=== PATIENT | female | born 1970 ===

== ENCOUNTER 2017-02-26 17:54 | Emergency (ER) | payer OTHER ==
[2017-02-26 18:17] VITALS: RESP 18; O2SAT 97
[2017-02-26] MEDS ORDERED: Sodium Chloride 0.9% 1,000 ML IV ONE (18:28)
--- NOTE | 2017-02-26 18:33 | C.PDOC ---
History Of Present Illness 46 y/o female presents to the ED with complaints of headache, body aches, and chills for the past several days. pt reports mild abdominal pain. Pt also reports vomiting. Denies fever, cough, dysuria, diarrhea, SOB or any other complaints. Time Seen by Provider: 02/26/17 18:26 Chief Complaint (Nursing): Flu-like Symptoms History Per: Patient History/Exam Limitations: no limitations Onset/Duration Of Symptoms: Days Current Symptoms Are (Timing): Still Present Location Of Pain: Diffuse Myalgias Sick Contacts (Context): None Associated Symptoms: Chills, Vomiting. denies: Cough, Diarrhea Severity: Mild Recent travel outside of the [place]: No Past Medical History Reviewed: Historical Data, Nursing Documentation, Vital Signs Vital Signs: Last Vital Signs Temp 98.1 F 02/26/17 21:39 Pulse 97 H 02/26/17 21:39 Resp 18 02/26/17 21:39 BP 101/66 02/26/17 21:39 Pulse Ox 97 02/26/17 22:57 Surgical History: Tonsillectomy Family History: States: Unknown Family Hx - Social History Hx Alcohol Use: Yes Hx Substance Use: No - Immunization History Hx Tetanus Toxoid Vaccination: No Hx Influenza Vaccination: Yes Hx Pneumococcal Vaccination: No Review Of Systems Except As Marked, All Systems Reviewed And Found Negative. Constitutional: Positive for: Chills, Other (body aches). Negative for: Fever Respiratory: Negative for: Cough Gastrointestinal: Positive for: Vomiting. Negative for: Diarrhea Genitourinary: Negative for: Dysuria Neurological: Positive for: Headache Physical Exam - Physical Exam Appears: Non-toxic, No Acute Distress Skin: Warm, Dry, No Rash Head: Atraumatic, Normacephalic Ear(s): Bilateral: Normal Nose: Normal Oral Mucosa: Moist Throat: Normal, No Erythema Neck: Normal, Normal ROM, Supple, Other (no meningismus) Chest: Symmetrical Cardiovascular: Rhythm Regular, No Murmur Respiratory: Normal Breath Sounds, No Rales, No Rhonchi, No Wheezing Gastrointestinal/Abdominal: Normal Exam, Soft, No Tenderness Extremity: Bilateral: Atraumatic Neurological/Psych: Oriented x3, Normal Speech ED Course And Treatment - Laboratory Results Result Diagrams: 02/26/17 18:56 02/26/17 18:56 O2 Sat by Pulse Oximetry: 97 (room air) Pulse Ox Interpretation: Normal Progress Note: Plan: VBG, labs, CXR, UA, flu swab, IV fluids, zofran, tylenol Medical Decision Making Medical Decision Making: r/o sepsis, uti, pna, influenza- labs imaging pending labs imaging pending 715: ekg sinus tach 109 940: pt reassesed: minimal elevated la, no leukoctyosis, sirs neg. ct head and abd neg. urine ?positive. will treat. s/p pain meds, antibiotics, pt now states feels better. observed comfortable. advise outpt f/u and return precautions. tachycardia resolved. pt notified of abnormal lfts. ct abd pelvis neg. suspect viral . rubio resolved. no menignmus. neuro intact. neck supple Disposition - Disposition Referrals: Arnie Jay MD [Staff Provider] - Joey Long MD [Staff Provider] - Disposition: HOME/ ROUTINE Disposition Time: 21:43 Condition: STABLE Additional Instructions: please follow up with your doctor. return to er with worsening symptoms or concenrs. Prescriptions: Cefpodoxime [Vantin] 100 mg PO BID #14 tab Instructions: Urinary Tract Infection in Women (DC), Weakness (ED), Abdominal Pain (ED) - Clinical Impression Clinical Impression: UTI (urinary tract infection), Body aches, Headache - Scribe Statement The provider has reviewed the documentation as recorded by the Bianca Styles Provider Attestation: All medical record entries made by the Bianca were at my direction and personally dictated by me. I have reviewed the chart and agree that the record accurately reflects my personal performance of the history, physical exam, medical decision making, and the department course for this patient. I have also personally directed, reviewed, and agree with the discharge instructions and disposition.
[2017-02-26] MEDS ORDERED: Sodium Chloride 0.9% 1,000 ML ONE (18:43)
--- NOTE | 2017-02-26 18:45 | RAD ---
PROCEDURE: CHEST RADIOGRAPH, 1 VIEW HISTORY: abd pain COMPARISON: None available. FINDINGS: LUNGS: Clear. PLEURA: No pneumothorax or pleural fluid seen. CARDIOVASCULAR: Normal. OSSEOUS STRUCTURES: No significant abnormalities. VISUALIZED UPPER ABDOMEN: Normal. OTHER FINDINGS: None. IMPRESSION: No active disease.
[2017-02-26 19:01] LABS: HCG,QUALITATIVE URINE NEGATIVE (NEGATIVE)
[2017-02-26 19:05] LABS: BASO % 0.2 % (0.0-2.0); EOS % 0.1 % (0.0-4.0); HEMOGLOBIN 13.6 g/dL (11.0-16.0); LYMPH # 3.7 K/uL (1.0-4.3); LYMPH % 50.1 % (20.0-40.0); MEAN CELL VOLUME 91.4 fL (81.0-99.0); MEAN CORPUSCULAR HEMOGLOBIN 30.6 pg (27.0-31.0); MEAN CORPUSCULAR HGB CONC 33.5 g/dL (33.0-37.0); MEAN PLATELET VOLUME 7.7 fL (7.2-11.7); MONO # 0.5 K/uL (0.0-0.8); MONO % 6.4 % (0.0-10.0); NEUT # 3.2 K/uL (1.8-7.0); NEUT % 43.2 % (50.0-75.0); NRBC % 0.3 % (0.0-2.0); RBC 4.44 Mil/uL (3.80-5.20); RED CELL DISTRIBUTION WIDTH 13.8 % (11.5-14.5); WHITE BLOOD COUNT 7.4 K/uL (4.8-10.8)
[2017-02-26 19:07] LABS: VENOUS BLOOD GAS BASE EXCESS 1.5 mmol/L (0.0-2.0); VENOUS BLOOD GAS PCO2 43 mmHg (40-60); VENOUS BLOOD GAS PO2 27 mm/Hg (30-55)
[2017-02-26 19:08] LABS: ALBUMIN 3.8 g/dL (3.5-5.0)
[2017-02-26 19:09] LABS: PROTHROMBIN TIME 11.7 SECONDS (9.7-12.2)
[2017-02-26 19:10] LABS: GFR AFRICAN-AMERICAN > 60; GFR NON-AFRICAN AMERICAN > 60
[2017-02-26 19:11] LABS: ALB/GLOB RATIO 0.9 (1.0-2.1); ALT/SGPT 325 U/L (9-52); AST/SGOT 341 U/L (14-36); BLOOD UREA NITROGEN 10 mg/dL (7-17); CALCIUM 8.3 mg/dl (8.6-10.4); LIPASE 55 U/L (23-300)
[2017-02-26 19:11] LABS: SQUAMOUS EPITHIAL 6 /hpf (0-5); URINE BILIRUBIN NEGATIVE (NEGATIVE); URINE BLOOD 3+ (NEGATIVE); URINE CLARITY Clear (Clear); URINE GLUCOSE (UA) NORMAL (Normal); URINE LEUKOCYTE ESTERASE TRACE Leu/uL (Negative); URINE NITRATE NEGATIVE (NEGATIVE); URINE PROTEIN 1+ mg/dL (NEGATIVE)
[2017-02-26 19:14] LABS: URINE COLOR YELLOW (YELLOW)
[2017-02-26] MEDS ORDERED: cefTRIAXone IV 1 gm in Dextros 50 ML IVPB ONE ×4 (19:31→19:40)
[2017-02-26] MEDS ORDERED: Iodixanol 320 MG/ML 100 ML BOTTLE IV ONE (20:09)
[2017-02-26 21:42] VITALS: BP 101/66; PULSE 97; TEMP 98.1
--- NOTE | 2017-02-27 07:48 | CT ---
PROCEDURE: CT HEAD WITHOUT CONTRAST. HISTORY: Headache COMPARISON: None available. TECHNIQUE: Axial computed tomography images were obtained through the head/brain without intravenous contrast. Radiation dose: Total exam DLP = 828 mGy-cm. This CT exam was performed using one or more of the following dose reduction techniques: Automated exposure control, adjustment of the mA and/or kV according to patient size, and/or use of iterative reconstruction technique. FINDINGS: HEMORRHAGE: No intracranial hemorrhage. BRAIN: No mass effect or edema. No atrophy or chronic microvascular ischemic changes. VENTRICLES: Unremarkable. No hydrocephalus. CALVARIUM: Unremarkable. PARANASAL SINUSES: Unremarkable as visualized. No significant inflammatory changes. MASTOID AIR CELLS: Unremarkable as visualized. No inflammatory changes. OTHER FINDINGS: None. IMPRESSION: No acute intracranial abnormality. If focal neurologic deficit persists, consider MRI. These findings were preliminarily reported at 9:01 p.m. on 02/26/[address] Angie Neville from [facility].
--- NOTE | 2017-02-27 08:15 | CT ---
PROCEDURE: CT Abdomen and Pelvis with intravenous contrast HISTORY: Abdominal pain, fever, elevated liver enzymes COMPARISON: None. TECHNIQUE: Multiple contiguous axial images were performed through the abdomen and pelvis with the use of intravenous contrast. Subsequently, sagittal and coronal reformatted images were obtained. Radiation dose: Total exam DLP = 366 mGy-cm. This CT exam was performed using one or more of the following dose reduction techniques: Automated exposure control, adjustment of the mA and/or kV according to patient size, and/or use of iterative reconstruction technique. FINDINGS: LOWER THORAX: Unremarkable. LIVER: Unremarkable. No gross lesion or ductal dilatation. GALLBLADDER AND BILE DUCTS: Unremarkable. PANCREAS: Unremarkable. No gross lesion or ductal dilatation. SPLEEN: Unremarkable. ADRENALS: Unremarkable. No mass. KIDNEYS AND URETERS: Unremarkable. No hydronephrosis. No solid mass. VASCULATURE: Unremarkable. No aortic aneurysm. BOWEL: Scattered colonic diverticuli. APPENDIX: No findings to suggest acute appendicitis. PERITONEUM: Unremarkable. No free fluid. No free air. LYMPH NODES: Unremarkable. No enlarged lymph nodes. BLADDER: Unremarkable. REPRODUCTIVE: Retroflexed uterus. BONES: Degenerative changes in the spine with prominent posterior disc osteophyte complex at the L5-S1 level. OTHER FINDINGS: Tiny umbilical hernia. IMPRESSION: Scattered colonic diverticuli. No evidence of diverticulitis. Tiny umbilical hernia. No evidence of strangulation. These findings were preliminarily reported at 9:30 p.m. on 02/26/[address] Angie Neville from [facility].
--- NOTE | 2017-03-01 10:48 | CARD ---
APPROVED REPORT EKG Measurement Heart [id number] HI [id number] <Conclusion> Sinus tachycardia Otherwise normal ECG
== END 2017-02-26 21:53 | disposition home or self-care (01) ==
LOC: C.ER 17:54
DX: N39.0 Urinary tract infection, site not specified (principal)
CPT/HCPCS: 70450; 71010; 74177; 80053; 81001; 82803; 83690; 84703; 85025; 85610; 85730; 87804; 93005; 96361; 96365; 96375; 99285; J0696; J1885; J2405; J7040; Q9967

== ENCOUNTER 2017-02-28 22:10 | Inpatient (IN) | payer OTHER ==
--- NOTE | 2017-02-28 22:37 | C.PDOC ---
History Of Present Illness 46F c.o headache, body aches, subjective fever, malaise for the last 10 days. was seen here for same 2 days ago but does not feel any better. now also has nausea and occasional vomiting. taken OTC meds for fever/pain without relief. Time Seen by Provider: 02/28/17 22:34 Chief Complaint (Nursing): Headache Past Medical History Vital Signs: Last Vital Signs Temp 98.3 F 03/02/17 17:14 Pulse 95 H 03/02/17 17:14 Resp 20 03/02/17 17:14 BP 101/67 03/02/17 17:14 Pulse Ox 97 03/02/17 17:14 - Medical History PMH: Denies: Chronic Kidney Disease Surgical History: Tonsillectomy Family History: States: Other Other Family History: nc - Social History Hx Alcohol Use: Yes Hx Substance Use: No - Immunization History Hx Tetanus Toxoid Vaccination: No Hx Influenza Vaccination: Yes Hx Pneumococcal Vaccination: No Review Of Systems Except As Marked, All Systems Reviewed And Found Negative. Constitutional: Positive for: Fever, Chills, Weakness, Malaise Eyes: Negative for: Vision Change Cardiovascular: Negative for: Chest Pain Respiratory: Negative for: Cough, Shortness of Breath Gastrointestinal: Positive for: Nausea, Vomiting. Negative for: Abdominal Pain , Diarrhea Genitourinary: Negative for: Dysuria, Frequency, Hematuria Musculoskeletal: Positive for: Neck Pain Neurological: Positive for: Headache. Negative for: Weakness, Numbness, Altered Mental Status Physical Exam - Physical Exam Appears: Well, Non-toxic, No Acute Distress Skin: Warm, Dry Head: Atraumatic Eye(s): bilateral: PERRL, EOMI Nose: No Epistaxis Oral Mucosa: Moist Tongue: No Swelling Lips: No Swelling Neck: Normal ROM, Supple Cardiovascular: Rhythm Regular Respiratory: No Decreased Breath Sounds, No Accessory Muscle Use, No Rales, No Rhonchi, No Stridor, No Wheezing Gastrointestinal/Abdominal: Soft, No Tenderness, No Distention, No Guarding, No Rebound Extremity: No Swelling Pulses: Left Radial: Normal, Right Radial: Normal Neurological/Psych: Oriented x3, Normal Cranial Nerves, Normal Motor, Normal Sensation, Other (no focal deficits) ED Course And Treatment - Laboratory Results Result Diagrams: 03/02/17 07:27 03/02/17 07:27 O2 Sat by Pulse Oximetry: 98 Lumbar Puncture - Consent obtained Consent obtained: Written - Performed by Performed by: Attending Physician - Indications Indication(s): Suspected menigitis - Contraindications Contraindications: None - Patient Position Patient position: Left lateral decubitus - Local Anesthetic Location: L3/L4 - Complications Complications: None - Patient tolerated procedure Patient tolerated procedure: Well - Notes: Notes:: unable to obtain CSF Medical Decision Making Medical Decision Making: josie Romero who will admit 0030 josie Ayala, jose jacob Disposition - Disposition Disposition: HOSPITALIZED Disposition Time: 23:27 Condition: STABLE - Clinical Impression Clinical Impression: Headache, Fever
[2017-02-28] MEDS ORDERED: Sodium Chloride 0.9% 1,000 ML IV ONE (22:39)
[2017-02-28] MEDS ORDERED: Lidocaine 1%/Epinephrine 1:100000 30 ml vial IJ STA (22:54)
[2017-02-28] MEDS ORDERED: Sodium Chloride 0.9% 1,000 ML ONE (22:55)
[2017-02-28] MEDS ORDERED: Lidocaine 2% w Epi 1:100,000 Inj IJ ONE (23:16)
[2017-02-28 23:23] LABS: EOS % 0.3 % (0.0-4.0); LYMPH % 59.6 % (20.0-40.0); NRBC % 0.2 % (0.0-2.0)
[2017-02-28 23:26] LABS: BASO % 0.1 % (0.0-2.0); HEMOGLOBIN 13.5 g/dL (11.0-16.0); LYMPH # 4.7 K/uL (1.0-4.3); MEAN CELL VOLUME 89.6 fL (81.0-99.0); MEAN CORPUSCULAR HEMOGLOBIN 29.9 pg (27.0-31.0); MEAN CORPUSCULAR HGB CONC 33.3 g/dL (33.0-37.0); MONO # 0.5 K/uL (0.0-0.8); MONO % 6.3 % (0.0-10.0); NEUT # 2.7 K/uL (1.8-7.0); NEUT % 33.7 % (50.0-75.0); PLATELET COUNT 180 K/uL (130-400); RBC 4.53 Mil/uL (3.80-5.20); RED CELL DISTRIBUTION WIDTH 13.9 % (11.5-14.5); WHITE BLOOD COUNT 7.9 K/uL (4.8-10.8)
[2017-02-28] MEDS: Acyclovir 500 MG in Dextrose 5% In Water 100 ML IV STA (23:30)
[2017-02-28] MEDS: Sodium Chloride 0.9% 1,000 ML IV SCH (23:30)
[2017-02-28] MEDS ORDERED: cefTRIAXone 2 GM in Sodium Chloride 0.9% 100 ML IVPB STA (23:30)
[2017-02-28 23:36] LABS: ALBUMIN 3.6 g/dL (3.5-5.0)
[2017-02-28 23:38] LABS: GFR AFRICAN-AMERICAN > 60; GFR NON-AFRICAN AMERICAN > 60
[2017-02-28 23:39] LABS: ALB/GLOB RATIO 0.9 (1.0-2.1); ALT/SGPT 472 U/L (9-52); AST/SGOT 427 U/L (14-36); BLOOD UREA NITROGEN 9 mg/dL (7-17); CALCIUM 8.2 mg/dl (8.6-10.4)
[2017-03-01 01:37] LABS: SQUAMOUS EPITHIAL 9 /hpf (0-5); URINE BACTERIA RARE (<OCC); URINE BILIRUBIN NEGATIVE (NEGATIVE); URINE CLARITY Hazy (Clear); URINE COLOR Amber (YELLOW); URINE GLUCOSE (UA) NORMAL (Normal); URINE NITRATE NEGATIVE (NEGATIVE); URINE PROTEIN NEGATIVE (NEGATIVE)
[2017-03-01 01:39] LABS: HCG,QUALITATIVE URINE NEGATIVE (NEGATIVE); URINE BLOOD 1+ (NEGATIVE); URINE LEUKOCYTE ESTERASE 1+ Leu/uL (Negative)
[2017-03-01] MEDS: Sodium Chloride 0.9% 1,000 ML IV SCH ×2 (02:17→19:57)
[2017-03-01] MEDS: Acyclovir 500 MG in Dextrose 5% In Water 100 ML IV STA (02:17)
[2017-03-01 03:38] LABS: BANDS 2 % (0-2); LYMPHOCYTE 17 % (20-40); MONOCYTE 4 % (0-10); NEUTROPHIL 40 % (50-75); PLATELET ESTIMATE NORMAL (NORMAL); REACTIVE LYMPHOCYTES 37 % (0-0); TOTAL CELLS COUNTED 100
[2017-03-01] MEDS ORDERED: DiphenhydrAMINE 50 mg/ml Inj IVP STA (04:18)
[2017-03-01] MEDS ORDERED: cefTRIAXone IV 1 gm in Dextros 1 GM in Dextrose 5% In Water 50 ML IVPB SCH (09:45)
[2017-03-01] MEDS: Pantoprazole 40 mg EC Tab PO SCH (11:27)
[2017-03-01] MEDS: cefTRIAXone IV 1 gm in Dextros 50 ML IVPB SCH ×2 (11:27→22:07)
[2017-03-01] MEDS: Enoxaparin 40 mg Syringe SC SCH (11:27)
[2017-03-01] MEDS ORDERED: Iodixanol 320 MG/ML 100 ML BOTTLE IV ONE (11:54)
--- NOTE | 2017-03-01 12:31 | CP.PCM.CON ---
History of Present Illness - History of Present Illness History of Present Illness: 46F c.o headache, body aches, subjective fever, malaise for the last 10 days. was seen here for same 2 days ago but does not feel any better. now also has nausea and occasional vomiting. taken OTC meds for fever/pain without relief. - Medical History PMH: Denies: Chronic Kidney Disease Surgical History: Tonsillectomy Review of Systems - Constitutional Constitutional: As Per HPI, Anorexia, Chills, Fever - EENT Eyes: absent: As Per HPI, Blind Spots, Blurred Vision, Change in Vision, Decreased Night Vision, Diplopia, Discharge, Dry Eye, Exophthalmos, Floaters, Irritation, Itchy Eyes, Loss of Peripheral Vision, Pain, Photophobia, Requires Corrective Lenses, Sees Flashes, Spots in Vision, Tunnel Vision, Other Visual Disturbances, Loss of Vision, Other Ears: absent: As Per HPI, Decreased Hearing, Ear Discharge, Ear Pain, Tinnitus, Abnormal Hearing, Disequilibrium, Dizziness, Other Nose/Mouth/Throat: absent: As Per HPI, Epistaxis, Nasal Congestion, Nasal Discharge, Nasal Obstruction, Nasal Trauma, Nose Pain, Post Nasal Drip, Sinus Pain, Sinus Pressure, Bleeding Gums, Change in Voice, Dental Pain, Dry Mouth, Dysphagia, Halitosis, Hoarsness, Lip Swelling, Mouth Lesions, Mouth Pain, Odynophagia, Sore Throat, Throat Swelling, Tongue Swelling, Facial Pain, Neck Pain, Neck Mass, Other - Breasts Breasts: absent: As Per HPI, Change in Shape, Mass, Pain, Nipple Discharge, Nipple Inversion, Skin Changes, Swelling, Other - Cardiovascular Cardiovascular: absent: As Per HPI, Acrocyanosis, Chest Pain, Chest Pain at Rest , Chest Pain with Activity, Claudication, Diaphoresis, Dyspnea, Dyspnea on Exertion, Edema, Irregular Heart Rhythm, Pain Radiating to Arm/Neck/Jaw, Leg Edema, Leg Ulcers, Lightheadedness, Orthopnea, Palpitations, Paroxysmal Nocturnal Dyspnea, Pedal Edema, Radiating Pain, Rapid Heart Rate, Slow Heart Rate, Syncope, Other - Respiratory Respiratory: absent: As Per HPI, Cough, Dyspnea, Hemoptysis, Dyspnea on Exertion , Wheezing, Snoring, Stridor, Pain on Inspiration, Chest Congestion, Excessive Mucous Production, Change in Mucous Color, Pain with Coughing, Other - Gastrointestinal Gastrointestinal: absent: As Per HPI, Abdominal Pain, Belching, Bloating, Change in Bowel Habits, Change in Stool Character, Coffee Ground Emesis, Constipation, Cramping, Diarrhea, Dyspepsia, Dysphagia, Early Satiety, Excessive Flatus, Fecal Incontinence, Heartburn, Hematemesis, Hematochezia, Loose Stools, Melena, Nausea, Odynophagia, Temesmus, Vomiting, Other - Genitourinary Genitourinary: absent: As Per HPI, Change in Urinary Stream, Difficulty Urinating, Dysuria, Flank Pain, Hematuria, Pyuria, Nocturia, Urinary Incontinence, Urinary Frequency, Urinary Hesitance, Urinary Urgency, Voiding Freq/Small Amts, Freq UTI, Hx Renal/Bladder Calculi, Hx /Renal Surgery, Bladder Distension, Other - Reproductive: Female Reproductive:Female: absent: As Per HPI, Amenorrhea, Amenorrhea/ Control, Currently Menstual, Cycle <21 Days, Cycle >35 Days, Cycle Variable, Menses 1-7 Days, Menses >/= 8 Days, Menses Variable, Cycle > 4 Weeks Between, No Menses for 6 Months, Heavy Menses, Light Menses, Normal Menses, Spotting Between Cycles , S/P Hysterectomy, Menopausal, Post Menopausal, Premenarche, Abnormal Vaginal Bleeding, Dysmenorrhea, Dyspareunia, Genital Lesions, Genital Pruritis, Pelvic Pain, Prolapse Symptoms, Sexual Dysfunction, Vaginal Discharge, Vaginal Dryness , Vaginal Odor, Vaginal Pruritis, Other - Menstruation Menstruation: absent: As Per HPI, Amenorrhea, Amenorrhea/ Control, Currently Menstual, Cycle <21 Days, Cycle >35 Days, Cycle Variable, Menses 1-7 Days, Menses >/= 8 Days, Menses Variable, Cycle > 4 Weeks Between, No Menses for 6 Months, Heavy Menses, Light Menses, Normal Menses, Spotting Between Cycles , S/P Hysterectomy, Menopausal, Post Menopausal, Premenarche, Abnormal Vaginal Bleeding, Dysmenorrhea, Other - Musculoskeletal Musculoskeletal: absent: As Per HPI, Abnormal Gait, Arthralgias, Atrophy, Back Pain, Deformity, Joint Swelling, Limited Range of Motion, Loss of Height, Muscle Cramps, Muscle Weakness, Myalgias, Neck Pain, Numbness, Radiating Pain into Limb, Stiffness, Tingling, Other - Integumentary Integumentary: absent: As Per HPI, Acne, Alopecia, Bleeding Lesions, Change in Hair, Change in Nails, Change in Pigmentation, Changing Lesions, Dry Skin, Erythema, Furuncle, Hirsutism, Lesions, New Lesions, Non-Healing Lesions, Photosensitivity, Pruritus, Rash, Skin Pain, Skin Ulcer, Sores, Striae, Swelling , Unusual Bruising, Wounds, Jaundice, Other - Neurological Neurological: As Per HPI - Psychiatric Psychiatric: absent: As Per HPI, Abnormal Sleep Pattern, Anhedonia, Anxiety, Auditory Hallucinations, Behavioral Changes, Change in Appetite, Change in Libido, Confusion, Depression, Difficulty Concentrating, Hallucinations, Homicidal Ideation, Hopelessness, Irritability, Memory Loss, Mood Swings, Panic Attacks, Paranoia, Suicidal Ideation, Visual Hallucinations, Tactile Hallucinations, Other - Endocrine Endocrine: absent: As Per HPI, Change in Body Appearance, Change in Libido, Cold Intolorance, Deepening of Voice, Excessive Sweating, Fatigue, Flushing, Heat Intolorance, Increase in Ring/Shoe/Hat Size, Palpitations, Polydipsia, Polyphagia, Polyuria, Other - Hematologic/Lymphatic Hematologic: absent: As Per HPI, Easy Bleeding, Easy Bruising, Lymphadenopathy, Other Past Patient History - Infectious Disease Hx of Infectious Diseases: None - Past Medical History & Family History Past Medical History?: Yes - Past Social History Smoking Status: Never Smoked - CARDIAC Hx Cardiac Disorders: No - PULMONARY Hx Respiratory Disorders: No - NEUROLOGICAL Hx Neurological Disorder: Yes - HEENT Hx HEENT Problems: No - RENAL Hx Chronic Kidney Disease: No - ENDOCRINE/METABOLIC Hx Endocrine Disorders: No - HEMATOLOGICAL/ONCOLOGICAL Hx Blood Disorders: No - INTEGUMENTARY Hx Dermatological Problems: No - MUSCULOSKELETAL/RHEUMATOLOGICAL Hx Falls: No - GASTROINTESTINAL Hx Gastrointestinal Disorders: No - GENITOURINARY/GYNECOLOGICAL Hx Genitourinary Disorders: No - PSYCHIATRIC Hx Substance Use: No - SURGICAL HISTORY Hx Tonsillectomy: Yes - ANESTHESIA Hx Anesthesia: Yes Hx Anesthesia Reactions: No Hx Malignant Hyperthermia: No Meds Allergies/Adverse Reactions: Allergies Allergy/AdvReac Type Severity Reaction Status Date / Time No Known Allergies Allergy Verified 02/28/17 22:29 - Medications Medications: Current Medications Enoxaparin Sodium (Lovenox) 40 mg SC DAILY [facility] Last Admin: 03/01/17 11:27 Dose: 40 mg Sodium Chloride (Sodium Chloride 0.9%) 1,000 mls @ 100 mls/hr IV .Q10H [facility] Last Admin: 03/01/17 02:17 Dose: 100 mls/hr Vancomycin HCl 1 gm/ Sodium (Chloride) 250 mls @ 166.6 mls/hr IVPB Q12H [facility] Last Admin: 03/01/17 11:29 Dose: 166.6 mls/hr Ceftriaxone Sodium (Rocephin Iv 1 Gm Duplex) 50 mls @ 100 mls/hr IVPB Q12H [facility] Last Admin: 03/01/17 11:27 Dose: 100 mls/hr Pantoprazole Sodium (Protonix Ec Tab) 40 mg PO DAILY [facility] Last Admin: 03/01/17 11:27 Dose: 40 mg Pneumococcal Polyvalent Vaccine (Pneumovax 23 Vaccine) 0.5 ml IM .ONCE ONE Stop: 03/02/17 10:01 Physical Exam - Constitutional Appears: Non-toxic, Chronically Ill - Head Exam Head Exam: NORMOCEPHALIC - Eye Exam Eye Exam: PERRL. absent: Scleral icterus - ENT Exam ENT Exam: Mucous Membranes Dry, Normal External Ear Exam - Neck Exam Neck exam: Negative for: Lymphadenopathy - Respiratory Exam Respiratory Exam: Decreased Breath Sounds, Clear to Auscultation Bilateral - Cardiovascular Exam Cardiovascular Exam: REGULAR RHYTHM - GI/Abdominal Exam GI & Abdominal Exam: Diminished Bowel Sounds - Rectal Exam Rectal Exam: Deferred - Exam Exam: NORMAL INSPECTION - Extremities Exam Extremities exam: Negative for: calf tenderness - Back Exam Back exam: absent: CVA tenderness (L), CVA tenderness (R) - Neurological Exam Neurological exam: Alert, CN II-XII Intact, Oriented x3, Reflexes Normal - Psychiatric Exam Psychiatric exam: Normal Mood - Skin Skin Exam: Dry Results - Vital Signs Recent Vital Signs: Last Vital Signs Temp 97.8 F 03/01/17 07:00 Pulse 78 03/01/17 07:00 Resp 20 03/01/17 07:00 BP 123/69 03/01/17 07:00 Pulse Ox 100 03/01/17 07:00 - Labs Result Diagrams: 02/28/17 23:18 02/28/17 23:18 Labs: Laboratory Results - last 24 hr 03/01/17 00:58 Urine Color Aye Urine Clarity Hazy Urine pH 5.0 Ur Specific [place] 1.016 Urine Protein Negative Urine Glucose (UA) Normal Urine Ketones Negative Urine Blood 1+ H Urine Nitrate Negative Urine Bilirubin Negative Urine Urobilinogen 4.0 H Ur Leukocyte Esterase 1+ H Urine WBC (Auto) 38 H Urine RBC (Auto) 6 H Ur Squamous Epith Cells 9 H Urine Bacteria Rare Urine HCG, Qual Negative Assessment & Plan (1) Fever Status: Acute (2) Fever Status: Acute (3) Body aches Status: Acute (4) Headache Status: Acute (5) UTI (urinary tract infection) Status: Acute - Assessment and Plan (Free Text) Assessment: iv rx as per dr walker
--- NOTE | 2017-03-01 13:29 | CT ---
PROCEDURE: CT HEAD WITH AND WITHOUT CONTRAST HISTORY: r/o mass/meningitis COMPARISON: 02/26/2017 TECHNIQUE: Axial computed tomography images were obtained through the head/brain with and without intravenous contrast enhancement. Contrast dose: 100 mL Visipaque 320 Radiation dose: Total exam DLP = 1587.03 mGy-cm. This CT exam was performed using one or more of the following dose reduction techniques: Automated exposure control, adjustment of the mA and/or kV according to patient size, and/or use of iterative reconstruction technique. FINDINGS: HEMORRHAGE: No intracranial hemorrhage. BRAIN: No mass, mass effect or edema. No abnormal intracranial enhancement. No atrophy or chronic microvascular ischemic changes. VENTRICLES: Unremarkable. No hydrocephalus. CALVARIUM: Unremarkable. SINUSES: Unremarkable as visualized. No significant inflammatory changes. MASTOID AIR CELLS: Unremarkable as visualized. No mastoid effusion. OTHER FINDINGS: None. IMPRESSION: Normal pre and post contrast enhanced CT of the head.
--- NOTE | 2017-03-01 14:28 | CP.PCM.HP ---
Past Patient History - Infectious Disease Hx of Infectious Diseases: None - Past Medical History & Family History Past Medical History?: Yes - Past Social History Smoking Status: Never Smoked - CARDIAC Hx Cardiac Disorders: No - PULMONARY Hx Respiratory Disorders: No - NEUROLOGICAL Hx Neurological Disorder: Yes - HEENT Hx HEENT Problems: No - RENAL Hx Chronic Kidney Disease: No - ENDOCRINE/METABOLIC Hx Endocrine Disorders: No - HEMATOLOGICAL/ONCOLOGICAL Hx Blood Disorders: No - INTEGUMENTARY Hx Dermatological Problems: No - MUSCULOSKELETAL/RHEUMATOLOGICAL Hx Falls: No - GASTROINTESTINAL Hx Gastrointestinal Disorders: No - GENITOURINARY/GYNECOLOGICAL Hx Genitourinary Disorders: No - PSYCHIATRIC Hx Substance Use: No - SURGICAL HISTORY Hx Tonsillectomy: Yes - ANESTHESIA Hx Anesthesia: Yes Hx Anesthesia Reactions: No Hx Malignant Hyperthermia: No Meds Allergies/Adverse Reactions: Allergies Allergy/AdvReac Type Severity Reaction Status Date / Time No Known Allergies Allergy Verified 02/28/17 22:29 Physical Exam - Constitutional Appears: Well - Head Exam Head Exam: ATRAUMATIC, NORMAL INSPECTION, NORMOCEPHALIC - Eye Exam Eye Exam: EOMI, Normal appearance, PERRL Pupil Exam: NORMAL ACCOMODATION, PERRL - ENT Exam ENT Exam: Mucous Membranes Moist, Normal Exam - Neck Exam Neck exam: Positive for: Normal Inspection - Respiratory Exam Respiratory Exam: Decreased Breath Sounds - Cardiovascular Exam Cardiovascular Exam: REGULAR RHYTHM, +S1, +S2 - GI/Abdominal Exam GI & Abdominal Exam: Diminished Bowel Sounds, Soft - Rectal Exam Rectal Exam: Deferred Results - Vital Signs Recent Vital Signs: Last Vital Signs Temp 97.8 F 03/01/17 07:00 Pulse 78 03/01/17 07:00 Resp 20 03/01/17 07:00 BP 123/69 03/01/17 07:00 Pulse Ox 100 03/01/17 07:00 - Labs Result Diagrams: 02/28/17 23:18 02/28/17 23:18 Labs: Laboratory Results - last 24 hr 03/01/17 00:58 Urine Color Aye Urine Clarity Hazy Urine pH 5.0 Ur Specific [place] 1.016 Urine Protein Negative Urine Glucose (UA) Normal Urine Ketones Negative Urine Blood 1+ H Urine Nitrate Negative Urine Bilirubin Negative Urine Urobilinogen 4.0 H Ur Leukocyte Esterase 1+ H Urine WBC (Auto) 38 H Urine RBC (Auto) 6 H Ur Squamous Epith Cells 9 H Urine Bacteria Rare Urine HCG, Qual Negative
--- NOTE | 2017-03-01 16:16 | US ---
Abdominal ultrasound History: Elevated liver enzymes. Fever. Comparison: CT scan dated 02/26/2017 Technique: Real-time sonography was performed through the abdomen. Findings: Liver: 16 centimeters in length. Increased echogenicity of the hepatic parenchymal cortex suggestive for hepatic parenchymal disease versus fatty infiltration. Clinical correlation. Gallbladder appears preserved. Normal wall thickness of 2 millimeters. Common bile duct measures 4 millimeters, within normal limits. Visualized portions of pancreas are preserved. Pancreatic tail not well visualized. Spleen measures 13.4 centimeters in length, prominent. Visualized aorta and IVC are preserved. Right kidney: 10.9 x 4.5 x 4.9 centimeters, within normal limits. Left Kidney: 11.3 x 5.7 x 5.2 centimeters, within normal limits. Impression: Increased echogenicity of the hepatic parenchymal cortex suggestive for fatty infiltration versus hepatic parenchymal disease. Clinical correlation. Limited visualization of the pancreas. Splenomegaly.
--- NOTE | 2017-03-01 17:44 | CP.PCM.CON ---
History of Present Illness - History of Present Illness History of Present Illness: SUB ACUTE PROCESS OF HER HEADACHE WITH VIRAL SYNDROME AND VISITED ED FEW DAYS AGO AND TREATED FOR UTI. HEADACHE AT THE TIME ARRIVAL 8/10 PHOTOPHOBIA AND NECK PAIN WITH NAUSEA L/P ATTEMPTED AND NOT SUCCESSFUL HAD CAT 2 DAYS PRIOR AND REPORTED NORMAL Past Patient History - Infectious Disease Hx of Infectious Diseases: None - Past Medical History & Family History Past Medical History?: Yes - Past Social History Smoking Status: Never Smoked - CARDIAC Hx Cardiac Disorders: No - PULMONARY Hx Respiratory Disorders: No - NEUROLOGICAL Hx Neurological Disorder: Yes - HEENT Hx HEENT Problems: No - RENAL Hx Chronic Kidney Disease: No - ENDOCRINE/METABOLIC Hx Endocrine Disorders: No - HEMATOLOGICAL/ONCOLOGICAL Hx Blood Disorders: No - INTEGUMENTARY Hx Dermatological Problems: No - MUSCULOSKELETAL/RHEUMATOLOGICAL Hx Falls: No - GASTROINTESTINAL Hx Gastrointestinal Disorders: No - GENITOURINARY/GYNECOLOGICAL Hx Genitourinary Disorders: No - PSYCHIATRIC Hx Substance Use: No - SURGICAL HISTORY Hx Tonsillectomy: Yes - ANESTHESIA Hx Anesthesia: Yes Hx Anesthesia Reactions: No Hx Malignant Hyperthermia: No Meds Allergies/Adverse Reactions: Allergies Allergy/AdvReac Type Severity Reaction Status Date / Time No Known Allergies Allergy Verified 02/28/17 22:29 - Medications Medications: Current Medications Enoxaparin Sodium (Lovenox) 40 mg SC DAILY [facility] Last Admin: 03/01/17 11:27 Dose: 40 mg Sodium Chloride (Sodium Chloride 0.9%) 1,000 mls @ 100 mls/hr IV .Q10H [facility] Last Admin: 03/01/17 02:17 Dose: 100 mls/hr Vancomycin HCl 1 gm/ Sodium (Chloride) 250 mls @ 166.6 mls/hr IVPB Q12H [facility] Last Admin: 03/01/17 11:29 Dose: 166.6 mls/hr Ceftriaxone Sodium (Rocephin Iv 1 Gm Duplex) 50 mls @ 100 mls/hr IVPB Q12H [facility] Last Admin: 03/01/17 11:27 Dose: 100 mls/hr Pantoprazole Sodium (Protonix Ec Tab) 40 mg PO DAILY [facility] Last Admin: 03/01/17 11:27 Dose: 40 mg Pneumococcal Polyvalent Vaccine (Pneumovax 23 Vaccine) 0.5 ml IM .ONCE ONE Stop: 03/02/17 10:01 Physical Exam - Constitutional Appears: No Acute Distress - Head Exam Head Exam: ATRAUMATIC - Eye Exam Eye Exam: EOMI, Normal appearance, PERRL Pupil Exam: NORMAL ACCOMODATION - ENT Exam ENT Exam: Mucous Membranes Moist - Expanded Neck Exam Expanded Expanded Neck Exam: absent: Anterior Neck Swelling, Carotid Bruit, Midline Deformity, Tenderness, Thyroid Mass (NO MENIGISMUS SIGHNS KERNIGS AND BRUDENSKI ARE NEGATIVE ), Tracheal Deviation - Cardiovascular Exam Cardiovascular Exam: REGULAR RHYTHM - Neurological Exam Neurological exam: Alert, CN II-XII Intact, Oriented x3, Reflexes Normal - Expanded Neurological Exam Expanded Patient oriented to: person, place, time Cranial nerves: EOM's Intact: Normal, Facial Palsey w/Forehead Movement: Normal , Facial Palsey w/o Forehead Movement: Normal, Facial Sensation: Normal, Gag Reflex: Normal, Nystagmus: Normal, Tongue Deviation: Normal Cerebellar Function: Finger to Nose: Normal, Heel to [place]: Normal Upper motor neuron: Babinski Sign: Normal, Pronator Drift: Normal Sensory exam: Lower Extremity 2 Point Discrimination: Normal, Lower Extremity Light Touch: Normal, Lower Extremity Pin Prick: Normal, Lower Extremity Temperature: Normal, Upper Extremity 2 Point Discrimination: Normal, Upper Extremity Light Touch: Normal, Upper Extremity Pin Prick: Normal, Upper Extremity Temperature: Normal DTR: Achilles Tendon Left: 2+, Achilles Tendon Right: 2+, Bicep Left: 2+, Bicep Right: 2+, Brachioradialis Left: 2+, Brachioradialis Right: 2+, Patellar Left: 2 +, Patellar Right: 2+, Tricep Left: 2+, Tricep Right: 2+ Results - Vital Signs Recent Vital Signs: Last Vital Signs Temp 98.2 F 03/01/17 15:53 Pulse 76 03/01/17 15:53 Resp 20 03/01/17 15:53 BP 121/70 03/01/17 15:53 Pulse Ox 96 03/01/17 15:53 - Labs Result Diagrams: 02/28/17 23:18 02/28/17 23:18 Labs: Laboratory Results - last 24 hr 03/01/17 03/01/17 00:58 14:04 Urine Color Aye Urine Clarity Hazy Urine pH 5.0 Ur Specific [place] 1.016 Urine Protein Negative Urine Glucose (UA) Normal Urine Ketones Negative Urine Blood 1+ H Urine Nitrate Negative Urine Bilirubin Negative Urine Urobilinogen 4.0 H Ur Leukocyte Esterase 1+ H Urine WBC (Auto) 38 H Urine RBC (Auto) 6 H Ur Squamous Epith Cells 9 H Urine Bacteria Rare Urine HCG, Qual Negative HIV 1&2 Antibody Screen Negative Assessment & Plan (1) Viral meningitis, unspecified Assessment and Plan: HYDRATION ANTIBIOTICS PER ID ISLOATION PRECAUTION PER ID L/P IS SCHEDULED BY ANASTHESIOLOGIST TOMORROW CASE DISCUSSED WITH JANI BLOOD WORK UP PER ORDER TYLENOL FOR HER HEADACHE Status: Acute Priority: High - Date & Time Date: 03/01/17 Time: 17:49
[2017-03-01 19:50] LABS: HEPATITIS B SURFACE AG NEGATIVE (NEGATIVE)
[2017-03-01 19:55] LABS: HEPATITIS A IGM NEGATIVE (NEGATIVE); HEPATITIS B CORE AB NEGATIVE (NEGATIVE)
[2017-03-01] MEDS ORDERED: Potassium Chloride 20 mEq ER Tab PO STA (20:04)
[2017-03-01 20:07] LABS: HEPATITIS C ANTIBODY NEGATIVE (NEGATIVE)
[2017-03-01 22:40] LABS: RAPID PLASMA REAGIN NONREACTIVE (NONREACTIVE)
[2017-03-02 07:46] LABS: BASO % 0.5 % (0.0-2.0); EOS % 0.2 % (0.0-4.0); HEMOGLOBIN 11.8 g/dL (11.0-16.0); LYMPH # 5.8 K/uL (1.0-4.3); LYMPH % 65.9 % (20.0-40.0); MEAN CELL VOLUME 89.3 fL (81.0-99.0); MEAN CORPUSCULAR HEMOGLOBIN 30.3 pg (27.0-31.0); MEAN CORPUSCULAR HGB CONC 33.9 g/dL (33.0-37.0); MEAN PLATELET VOLUME 8.2 fL (7.2-11.7); MONO # 0.5 K/uL (0.0-0.8); MONO % 5.5 % (0.0-10.0); NEUT # 2.5 K/uL (1.8-7.0); NEUT % 27.9 % (50.0-75.0); NRBC % 0.2 % (0.0-2.0); RBC 3.89 Mil/uL (3.80-5.20); RED CELL DISTRIBUTION WIDTH 13.8 % (11.5-14.5); WHITE BLOOD COUNT 8.8 K/uL (4.8-10.8)
[2017-03-02 08:12] LABS: ALB/GLOB RATIO 0.8 (1.0-2.1); ALT/SGPT 344 U/L (9-52); AST/SGOT 198 U/L (14-36); BLOOD UREA NITROGEN 4 mg/dL (7-17); GFR AFRICAN-AMERICAN > 60; GFR NON-AFRICAN AMERICAN > 60
[2017-03-02] MEDS ORDERED: Pneumococcal 23-Valent Vaccine IM ONE (10:00)
--- NOTE | 2017-03-02 11:38 | CP.PCM.PN ---
Subjective - Date & Time of Evaluation Date of Evaluation: 03/02/17 Time of Evaluation: 11:00 - Subjective Subjective: clinically same Objective - Vital Signs/Intake and Output Vital Signs (last 24 hours): Temp Pulse Resp BP Pulse Ox 98.2 F 92 H 20 108/67 98 03/02/17 09:56 03/02/17 09:56 03/02/17 09:56 03/02/17 09:56 03/02/17 09:56 Intake and Output: 03/02/17 03/02/17 06:59 18:59 Intake Total 500 Balance 500 - Medications Medications: Current Medications Enoxaparin Sodium (Lovenox) 40 mg SC DAILY [facility] Last Admin: 03/01/17 11:27 Dose: 40 mg Sodium Chloride (Sodium Chloride 0.9%) 1,000 mls @ 100 mls/hr IV .Q10H [facility] Last Admin: 03/01/17 19:57 Dose: 100 mls/hr Vancomycin HCl 1 gm/ Sodium (Chloride) 250 mls @ 166.6 mls/hr IVPB Q12H [facility] Last Admin: 03/01/17 23:22 Dose: 166.6 mls/hr Ceftriaxone Sodium (Rocephin Iv 1 Gm Duplex) 50 mls @ 100 mls/hr IVPB Q12H [facility] Last Admin: 03/01/17 22:07 Dose: 100 mls/hr Ondansetron HCl (Zofran Inj) 4 mg IVP Q6H PRN PRN Reason: Nausea/Vomiting Pantoprazole Sodium (Protonix Ec Tab) 40 mg PO DAILY [facility] Last Admin: 03/01/17 11:27 Dose: 40 mg - Labs Labs: 03/02/17 07:27 03/02/17 07:27 - Constitutional Appears: Well - Head Exam Head Exam: ATRAUMATIC, NORMAL INSPECTION, NORMOCEPHALIC - Eye Exam Eye Exam: EOMI, Normal appearance, PERRL Pupil Exam: NORMAL ACCOMODATION, PERRL - ENT Exam ENT Exam: Mucous Membranes Moist, Normal Exam - Neck Exam Neck Exam: Full ROM, Normal Inspection. absent: Lymphadenopathy - Respiratory Exam Respiratory Exam: Decreased Breath Sounds - Cardiovascular Exam Cardiovascular Exam: REGULAR RHYTHM, +S1, +S2 - GI/Abdominal Exam GI & Abdominal Exam: Soft, Diminished Bowel Sounds - Rectal Exam Rectal Exam: Deferred
--- NOTE | 2017-03-02 11:54 | CP.PCM.PN ---
Subjective - Date & Time of Evaluation Date of Evaluation: 03/02/17 Time of Evaluation: 08:00 - Subjective Subjective: 46F c.o headache, body aches, subjective fever, malaise for the last 10 days. was seen here for same 2 days ago but does not feel any better. now also has nausea and occasional vomiting. taken OTC meds for fever/pain without relief. LFT's coming down cont IV rx as per dr Romero Objective - Vital Signs/Intake and Output Vital Signs (last 24 hours): Temp Pulse Resp BP Pulse Ox 98.2 F 92 H 20 108/67 98 03/02/17 09:56 03/02/17 09:56 03/02/17 09:56 03/02/17 09:56 03/02/17 09:56 Intake and Output: 03/02/17 03/02/17 06:59 18:59 Intake Total 500 Balance 500 - Medications Medications: Current Medications Enoxaparin Sodium (Lovenox) 40 mg SC DAILY [facility] Last Admin: 03/01/17 11:27 Dose: 40 mg Sodium Chloride (Sodium Chloride 0.9%) 1,000 mls @ 100 mls/hr IV .Q10H [facility] Last Admin: 03/01/17 19:57 Dose: 100 mls/hr Vancomycin HCl 1 gm/ Sodium (Chloride) 250 mls @ 166.6 mls/hr IVPB Q12H [facility] Last Admin: 03/01/17 23:22 Dose: 166.6 mls/hr Ceftriaxone Sodium (Rocephin Iv 1 Gm Duplex) 50 mls @ 100 mls/hr IVPB Q12H [facility] Last Admin: 03/01/17 22:07 Dose: 100 mls/hr Ondansetron HCl (Zofran Inj) 4 mg IVP Q6H PRN PRN Reason: Nausea/Vomiting Pantoprazole Sodium (Protonix Ec Tab) 40 mg PO DAILY [facility] Last Admin: 03/01/17 11:27 Dose: 40 mg - Labs Labs: 03/02/17 07:27 03/02/17 07:27 - Constitutional Appears: Non-toxic, Chronically Ill - Head Exam Head Exam: NORMOCEPHALIC - Eye Exam Eye Exam: PERRL. absent: Scleral icterus - ENT Exam ENT Exam: Mucous Membranes Dry, Normal External Ear Exam - Neck Exam Neck Exam: absent: Lymphadenopathy - Respiratory Exam Respiratory Exam: Decreased Breath Sounds, Clear to Ausculation Bilateral - Cardiovascular Exam Cardiovascular Exam: REGULAR RHYTHM - GI/Abdominal Exam GI & Abdominal Exam: Distended, Soft - Rectal Exam Rectal Exam: Deferred Assessment and Plan (1) Fever Status: Acute (2) Fever Status: Acute (3) Body aches Status: Acute (4) Headache Status: Acute (5) UTI (urinary tract infection) Status: Acute
[2017-03-02] MEDS: cefTRIAXone IV 1 gm in Dextros 50 ML IVPB SCH ×2 (12:02→21:46)
[2017-03-02] MEDS: Pantoprazole 40 mg EC Tab PO SCH (12:03)
--- NOTE | 2017-03-02 13:35 | MRI ---
PROCEDURE: MR LUMBAR SPINE WITHOUT CONTRAST HISTORY: RULE OUT HEMATOMA/ABSCESS COMPARISON: None available. TECHNIQUE: Multiecho multiplanar sequences were performed through the lumbar spine without the use of intravenous contrast. FINDINGS: Normal lumbar lordosis. Vertebral body heights are preserved. Marrow signal is remarkable for diminished signal throughout all sequences which can be a sign of anemia but is nonspecific ultimately. Conus medullaris unremarkable at the level of L1 superior endplate. Paraspinal soft tissues are unremarkable. T12-L1: No disc herniation, spinal canal stenosis or neural foraminal narrowing. L1-2: No disc herniation, spinal canal stenosis or neural foraminal narrowing. L2-3: No disc herniation, spinal canal stenosis or neural foraminal narrowing. L3-4: There is limited disc bulging flattening the ventral thecal sac minimally. There is also an annular tear at the midline posteriorly. No spinal canal or neural foraminal stenosis. L4-5: There is a mild broad-based right paracentral disc herniation or asymmetric disc bulge inverting the ventral thecal sac slightly. No significant stenosis results although there is encroachment of the right greater than left lateral recesses. . No significant neural foraminal stenosis. L5-S1: A mild generalized disc bulge is appreciated combined with facet joint degenerative arthropathy resulting lateral recess stenosis symmetrically, bilaterally. OTHER FINDINGS: None. IMPRESSION: 1). Mild bilateral lateral recess stenosis is appreciated at L5-S1 due to generalized disc bulging and bilateral facet joint degenerative arthropathy. 2). An asymmetric disc bulge or limited broad-based right paracentral disc herniation is identified at L4-5 encroaching the descending right L5 nerve root without prominent stenosis. Limited disc bulging is seen symmetrically at L3-4. 3). No severe stenosis encountered throughout.
[2017-03-02] MEDS ORDERED: Lidocaine 2% Inj (20ml) INFIL ONE (14:15)
[2017-03-02] MEDS ORDERED: Lidocaine 2% Inj (20ml) ONE (14:15)
[2017-03-02 17:21] LABS: FLUID TYPE SPINAL FLUID
[2017-03-02 18:10] LABS: CSF APPEARANCE CLEAR/COLORLESS (CLEAR); CSF VOLUME 4 mL (0-1)
--- NOTE | 2017-03-02 21:22 | CP.PCM.PN ---
Subjective - Date & Time of Evaluation Date of Evaluation: 03/02/17 Time of Evaluation: 07:10 - Subjective Subjective: SLEPT GOOD HEADACHE IS BETTER STILL HAVING DISCOMFORT LP WILL BE DONE BY ANESTHESIOLOGIST TO DAY CONTINUE THE ANTIBIOTICS PER IC CONTINUE HYDRATION NEURO LICEA SHE IS STABLE Objective - Vital Signs/Intake and Output Vital Signs (last 24 hours): Temp Pulse Resp BP Pulse Ox 98.3 F 95 H 20 101/67 98 03/02/17 17:14 03/02/17 17:14 03/02/17 17:14 03/02/17 17:14 03/02/17 19:39 Intake and Output: 03/02/17 03/03/17 18:59 06:59 Intake Total 100 Balance 100 - Medications Medications: Current Medications Enoxaparin Sodium (Lovenox) 40 mg SC DAILY [facility] Last Admin: 03/01/17 11:27 Dose: 40 mg Sodium Chloride (Sodium Chloride 0.9%) 1,000 mls @ 100 mls/hr IV .Q10H [facility] Last Admin: 03/01/17 19:57 Dose: 100 mls/hr Vancomycin HCl 1 gm/ Sodium (Chloride) 250 mls @ 166.6 mls/hr IVPB Q12H [facility] Last Admin: 03/02/17 12:02 Dose: 166.6 mls/hr Ceftriaxone Sodium (Rocephin Iv 1 Gm Duplex) 50 mls @ 100 mls/hr IVPB Q12H [facility] Last Admin: 03/02/17 12:02 Dose: 100 mls/hr Morphine Sulfate (Morphine) 2 mg IVP Q4 PRN PRN Reason: Pain, severe (8-10) Last Admin: 03/02/17 20:24 Dose: 2 mg Ondansetron HCl (Zofran Inj) 4 mg IVP Q6H PRN PRN Reason: Nausea/Vomiting Pantoprazole Sodium (Protonix Ec Tab) 40 mg PO DAILY [facility] Last Admin: 03/02/17 12:03 Dose: 40 mg Assessment and Plan (1) Viral meningitis, unspecified Status: Acute
[2017-03-03] MEDS: Sodium Chloride 0.9% 1,000 ML IV SCH (00:41)
[2017-03-03] MEDS: cefTRIAXone IV 1 gm in Dextros 50 ML IVPB SCH (09:49)
[2017-03-03] MEDS: Pantoprazole 40 mg EC Tab PO SCH (09:49)
[2017-03-03] MEDS: Enoxaparin 40 mg Syringe SC SCH (09:57)
[2017-03-03] MEDS ORDERED: Iohexol 240 (50 ml) PO ONE (11:30)
[2017-03-03 12:14] LABS: HEPATITIS B SURFACE AG NEGATIVE (NEGATIVE)
[2017-03-03 12:19] LABS: HEPATITIS A IGM NEGATIVE (NEGATIVE)
[2017-03-03 12:20] LABS: HEPATITIS B CORE AB NEGATIVE (NEGATIVE)
[2017-03-03 12:31] LABS: HEPATITIS C ANTIBODY NEGATIVE (NEGATIVE)
[2017-03-03] MEDS ORDERED: Iodixanol 320 MG/ML 100 ML BOTTLE IV ONE (14:46)
--- NOTE | 2017-03-03 15:21 | CP.PCM.PN ---
Subjective - Date & Time of Evaluation Date of Evaluation: 03/03/17 Time of Evaluation: 09:00 - Subjective Subjective: headaches persist afebrile nad abd soft LFT's high consider GI eval Objective - Vital Signs/Intake and Output Vital Signs (last 24 hours): Temp Pulse Resp BP Pulse Ox 98.3 F 102 H 20 110/73 96 03/03/17 00:00 03/03/17 00:00 03/03/17 00:00 03/03/17 00:00 03/03/17 00:00 Intake and Output: 03/03/17 03/03/17 06:59 18:59 Intake Total 1400 Output Total 600 Balance 800 - Medications Medications: Current Medications Enoxaparin Sodium (Lovenox) 40 mg SC DAILY [facility] Last Admin: 03/03/17 09:57 Dose: Not Given Sodium Chloride (Sodium Chloride 0.9%) 1,000 mls @ 100 mls/hr IV .Q10H [facility] Last Admin: 03/03/17 00:41 Dose: 100 mls/hr Ceftriaxone Sodium (Rocephin Iv 1 Gm Duplex) 50 mls @ 100 mls/hr IVPB Q12H [facility] Last Admin: 03/03/17 09:49 Dose: 100 mls/hr Morphine Sulfate (Morphine) 2 mg IVP Q4 PRN PRN Reason: Pain, severe (8-10) Last Admin: 03/02/17 20:24 Dose: 2 mg Ondansetron HCl (Zofran Inj) 4 mg IVP Q6H PRN PRN Reason: Nausea/Vomiting Pantoprazole Sodium (Protonix Ec Tab) 40 mg PO DAILY [facility] Last Admin: 03/03/17 09:49 Dose: 40 mg - Constitutional Appears: Non-toxic, Chronically Ill - Head Exam Head Exam: NORMOCEPHALIC - Eye Exam Eye Exam: PERRL - ENT Exam ENT Exam: Mucous Membranes Dry - Neck Exam Neck Exam: absent: Lymphadenopathy - Respiratory Exam Respiratory Exam: Decreased Breath Sounds, Clear to Ausculation Bilateral - Cardiovascular Exam Cardiovascular Exam: REGULAR RHYTHM - GI/Abdominal Exam GI & Abdominal Exam: Distended, Soft - Rectal Exam Rectal Exam: Deferred - Exam Exam: NORMAL INSPECTION Assessment and Plan (1) Fever Status: Acute (2) Fever Status: Acute (3) Body aches Status: Acute (4) Headache Status: Acute (5) UTI (urinary tract infection) Status: Acute
--- NOTE | 2017-03-03 16:13 | CP.PCM.CON ---
<Danita Huffman - Last Filed: 03/03/17 17:32> History of Present Illness - History of Present Illness History of Present Illness: Gastroenterology Fellow/PGY5 Consult Note 46 year old female with history of Anxiety presenting with nausea, vomiting, fever, and body aches. She describes onset of all symptoms approximately two weeks ago initially starting with body aches, subjective fever, and fatigue leading to initial ER presentation 02/[address] head and abdomen/pelvis with IV contrast showing diverticulosis, umbilical hernia, and no acute pathology. Patient notes interval development of nausea and minimum three food/ bilious vomitus episodes daily leading to ER visit 02/28 current inpatient stay, and active treatment of UTI and negative lumbar puncture with persistent fever/ headache. GI consultation for transaminitis. Patient notes resolved vomitus episodes since inpatient and tolerating moderate amount of heart healthy diet. Notes baseline hard bowel movement every three days with straining. Denies any history of sudden weight gain or unintentional weight loss. Denies heartburn, indigestion, acid reflux, bloating, diarrhea, hematemesis, hematochezia, melena , confusion, pruritis, or yellowing of skin or eyes. Denies chronic NSAIDs, herbal supplements, or acetaminophen use. Denies recent travel, sick contacts, or recent antibiotics other than cefpodoxime prescribed on initial ER visit 02/26. Admits to regular use of Benadryl and Afrin. No prior EGD or colonoscopy. Family- denies colon cancer, stomach cancer, liver cancer, liver cirrhosis Social- denies tobacco, alcohol, illicit drug use Surgery- tonsillectomy, BTL, endometrial ablation Review of Systems - Review of Systems Review of Systems: A 12-point review of systems negative except for as above Past Patient History - Infectious Disease Hx of Infectious Diseases: None - Past Medical History & Family History Past Medical History?: Yes - Past Social History Smoking Status: Never Smoked - CARDIAC Hx Cardiac Disorders: No - PULMONARY Hx Respiratory Disorders: No - NEUROLOGICAL Hx Neurological Disorder: Yes - HEENT Hx HEENT Problems: No - RENAL Hx Chronic Kidney Disease: No - ENDOCRINE/METABOLIC Hx Endocrine Disorders: No - HEMATOLOGICAL/ONCOLOGICAL Hx Blood Disorders: No - INTEGUMENTARY Hx Dermatological Problems: No - MUSCULOSKELETAL/RHEUMATOLOGICAL Hx Falls: No - GASTROINTESTINAL Hx Gastrointestinal Disorders: No - GENITOURINARY/GYNECOLOGICAL Hx Genitourinary Disorders: No - PSYCHIATRIC Hx Substance Use: No - SURGICAL HISTORY Hx Tonsillectomy: Yes - ANESTHESIA Hx Anesthesia: Yes Hx Anesthesia Reactions: No Hx Malignant Hyperthermia: No Meds Allergies/Adverse Reactions: Allergies Allergy/AdvReac Type Severity Reaction Status Date / Time No Known Allergies Allergy Verified 02/28/17 22:29 - Medications Medications: Current Medications Enoxaparin Sodium (Lovenox) 40 mg SC DAILY [facility] Last Admin: 03/03/17 09:57 Dose: Not Given Sodium Chloride (Sodium Chloride 0.9%) 1,000 mls @ 100 mls/hr IV .Q10H [facility] Last Admin: 03/03/17 00:41 Dose: 100 mls/hr Ceftriaxone Sodium (Rocephin Iv 1 Gm Duplex) 50 mls @ 100 mls/hr IVPB Q12H [facility] Last Admin: 03/03/17 09:49 Dose: 100 mls/hr Morphine Sulfate (Morphine) 2 mg IVP Q4 PRN PRN Reason: Pain, severe (8-10) Last Admin: 03/02/17 20:24 Dose: 2 mg Ondansetron HCl (Zofran Inj) 4 mg IVP Q6H PRN PRN Reason: Nausea/Vomiting Pantoprazole Sodium (Protonix Ec Tab) 40 mg PO DAILY [facility] Last Admin: 03/03/17 09:49 Dose: 40 mg Physical Exam - Constitutional Appears: Non-toxic, No Acute Distress - Head Exam Head Exam: ATRAUMATIC, NORMOCEPHALIC - Eye Exam Eye Exam: EOMI, PERRL Pupil Exam: PERRL. absent: Miosis, Mydriatic - ENT Exam ENT Exam: Mucous Membranes Moist, Normal Oropharynx - Neck Exam Neck exam: Positive for: Full Rom, Normal Inspection - Respiratory Exam Respiratory Exam: Clear to Auscultation Bilateral. absent: Rales, Rhonchi, Wheezes - Cardiovascular Exam Cardiovascular Exam: RRR, +S1, +S2. absent: Gallop, Rubs - GI/Abdominal Exam GI & Abdominal Exam: Normal Bowel Sounds, Organomegaly, Soft. absent: Distended , Firm, Guarding, Rebound, Rigid, Tenderness - Extremities Exam Extremities exam: Positive for: full ROM. Negative for: pedal edema - Neurological Exam Neurological exam: Alert, Oriented x3 - Psychiatric Exam Psychiatric exam: Normal Affect, Normal Mood - Skin Skin Exam: Dry, Intact, Normal Color, Warm Results - Vital Signs Recent Vital Signs: Last Vital Signs Temp 98.2 F 03/03/17 16:00 Pulse 91 H 03/03/17 16:00 Resp 20 03/03/17 16:00 BP 100/60 03/03/17 16:00 Pulse Ox 97 03/03/17 16:00 - Labs Result Diagrams: 03/02/17 07:27 03/02/17 07:27 Labs: Laboratory Results - last 24 hr 03/02/17 03/02/17 03/03/17 17:18 17:18 11:22 Fluid Type Spinal fluid CSF Volume 4 H CSF Appearance Clear/colorless CSF WBC 2.0 CSF RBC 48.0 H CSF Total Cell Counted TEST NOT PERFORMED CSF Monos/Macrophages TEST NOT PERFORMED CSF Comment CSF Glucose 58 CSF Total Protein 37.0 Hepatitis A IgM Ab Negative Hep Bs Antigen Negative Hep B Core IgM Ab Negative Hepatitis C Antibody Negative Assessment & Plan - Assessment and Plan (Free Text) Assessment: 46 year old female with history of Anxiety presenting with nausea, vomiting, fever, and body aches for two weeks. Active treatment of UTI, meningitis ruled out with initial CSF lumbar puncture analysis. GI consultation for transaminitis. No prior EGD or colonoscopy. Plan: >DDx: infectious, drug induced, autoimmune >03/03 Hepatitis panel negative >03/01 Ultrasound- hepatic steatosis, no gallstones, CBD 4mm, splenomegaly >7/7CT A/P IV contrast- diverticulosis, no acute pathology >pending repeat CT A/P today >ordered autoimmune workup: Fe/TIBC, ASMA, AMA, LKM, IgG/A/M >ordered HepAtotal, HepBcTotal, HepBsaby, GGT >ordered Ehrlichiosis, Babesiosis >ID managing- pending EBV, HSV, Lyme titer, adenovirus >ordered PT/INR >ordered ASA, APAP, drug screen, Lipid panel >on ceftriaxone for UTI >pending CSF culture >negative Monspot test, Influenza >urine and blood cultures negative to date >nausea/vomiting resolved >constipation- ordered bowel regimen: Miralax, Colace >will follow clinical course <Arnie Jay - Last Filed: 03/03/17 17:41> Meds - Medications Medications: Current Medications Enoxaparin Sodium (Lovenox) 40 mg SC DAILY [facility] Last Admin: 03/03/17 09:57 Dose: Not Given Sodium Chloride (Sodium Chloride 0.9%) 1,000 mls @ 100 mls/hr IV .Q10H [facility] Last Admin: 03/03/17 00:41 Dose: 100 mls/hr Ceftriaxone Sodium (Rocephin Iv 1 Gm Duplex) 50 mls @ 100 mls/hr IVPB Q12H [facility] Last Admin: 03/03/17 09:49 Dose: 100 mls/hr Morphine Sulfate (Morphine) 2 mg IVP Q4 PRN PRN Reason: Pain, severe (8-10) Last Admin: 03/02/17 20:24 Dose: 2 mg Ondansetron HCl (Zofran Inj) 4 mg IVP Q6H PRN PRN Reason: Nausea/Vomiting Pantoprazole Sodium (Protonix Ec Tab) 40 mg PO DAILY [facility] Last Admin: 03/03/17 09:49 Dose: 40 mg Polyethylene Glycol (Miralax) 17 gm PO DAILY [facility] Results - Vital Signs Recent Vital Signs: Last Vital Signs Temp 98.2 F 03/03/17 16:00 Pulse 91 H 03/03/17 16:00 Resp 20 03/03/17 16:00 BP 100/60 03/03/17 16:00 Pulse Ox 97 03/03/17 16:00 - Labs Result Diagrams: 03/02/17 07:27 03/02/17 07:27 Labs: Laboratory Results - last 24 hr 03/02/17 03/02/17 03/03/17 17:18 17:18 11:22 CSF Volume 4 H CSF Appearance Clear/colorless CSF WBC 2.0 CSF RBC 48.0 H CSF Total Cell Counted TEST NOT PERFORMED CSF Monos/Macrophages TEST NOT PERFORMED CSF Comment CSF Glucose 58 CSF Total Protein 37.0 Hepatitis A IgM Ab Negative Hep Bs Antigen Negative Hep B Core IgM Ab Negative Hepatitis C Antibody Negative Attending/Attestation - Attestation I have personally seen and examined this patient.: Yes I have fully participated in the care of the patient.: Yes I have reviewed all pertinent clinical information: Yes Notes (Text): 03/03/17 17:35 I have seen and examined patient with GI fellow. Agree with above documentation with the following additions. In brief, this is a 46 year old female with history of anxiety who initially presented to hospital with complaint of fever, malaise, and body aches. During hospital course she has been worked up for meningitis with lumbar puncture and is currently being treated for UTI. GI called for evaluation of elevated LFTs. She denies specific history of abdominal pain, jaundice, pruritis, herbal medication use, excessive tylenol or ETOH use, or prior history of liver disease or hepatitis. No prior endoscopic evaluation. Anxiety Fever, unknown origin Transamintis - viral hepatitis panel negative CT imaging and US abdomen reviewed by me showing no evidence of biliary dilation or hepatic parenchymal abnormalities - Diet as tolerated - Etiology of elevated LFTs could be related to DILI secondary to antibiotic use vs viral infectious - LFTs trending down, continue to monitor and avoid hepatotoxic therapy - Obtain autoimmune panel - Awaiting EBV and tick borne infectious workup. Monospot, HIV, Influenza are all negative. - Follow up blood cultures and ID recommendations - Will continue to monitor patient clinical course
--- NOTE | 2017-03-03 16:20 | CT ---
PROCEDURE: CT Abdomen and Pelvis with and without intravenous contrast HISTORY: elevated LFTs COMPARISON: Abdomen pelvis CT examination from 02/26/2017. TECHNIQUE: Axial images of the abdomen were obtained in the pre contrast, portal venous and delayed phases of enhancement. Coronal and sagittal reformats were generated. Contrast dose: Visipaque 320-100 cc Radiation dose: Total exam DLP = 1406 mGy-cm. This CT exam was performed using one or more of the following dose reduction techniques: Automated exposure control, adjustment of the mA and/or kV according to patient size, and/or use of iterative reconstruction technique. FINDINGS: LOWER THORAX: Trace bilateral basilar dependent atelectasis in the right greater than left sides. . LIVER: Multi phase imaging through the liver is unremarkable. No gross lesion or ductal dilatation. GALLBLADDER AND BILE DUCTS: The gallbladder appears contracted and is otherwise unremarkable. No definite biliary tree dilatation is identified at this time. . PANCREAS: Unremarkable. No gross lesion or ductal dilatation. SPLEEN: Unremarkable. ADRENALS: Unremarkable. No mass. KIDNEYS AND URETERS: Unremarkable. No hydronephrosis. No solid mass. VASCULATURE: Unremarkable. No aortic aneurysm. BOWEL: Unremarkable. No obstruction. No gross mural thickening. APPENDIX: Not identified. No suspicious right lower quadrant findings nevertheless. PERITONEUM: There are no pertinent perineal findings identified in the abdomen. Trace fluid is questioned in the inferior pelvis. LYMPH NODES: Unremarkable. No enlarged lymph nodes. BLADDER: Unremarkable. REPRODUCTIVE: Trace pelvic fluid identified around of uncertain origin. There are few tiny (identified. Minimal left adnexal cysts are appreciated and there is trace pelvic fluid identified posterior to the uterus, of uncertain origin. No suspicious adnexal findings. . BONES: Stable L5-S1 lumbar spondylosis again evident. OTHER FINDINGS: None. IMPRESSION: 1. Multi phase imaging through the liver reveals no focal findings. The biliary tree is not appears slightly dilated. The gallbladder is contracted and otherwise unremarkable appearing. No pancreatic lesion is identified grossly. 2. Trace pelvic fluid is identified of uncertain origin. A few tiny left adnexal cysts are identified.
--- NOTE | 2017-03-03 18:21 | CP.PCM.PN ---
Subjective - Date & Time of Evaluation Date of Evaluation: 03/03/17 Time of Evaluation: 09:40 - Subjective Subjective: clinically same Objective - Vital Signs/Intake and Output Vital Signs (last 24 hours): Temp Pulse Resp BP Pulse Ox 98.2 F 91 H 20 100/60 97 03/03/17 16:00 03/03/17 16:00 03/03/17 16:00 03/03/17 16:00 03/03/17 16:00 Intake and Output: 03/03/17 03/03/17 06:59 18:59 Intake Total 1400 Output Total 600 Balance 800 - Medications Medications: Current Medications Enoxaparin Sodium (Lovenox) 40 mg SC DAILY [facility] Last Admin: 03/03/17 09:57 Dose: Not Given Sodium Chloride (Sodium Chloride 0.9%) 1,000 mls @ 100 mls/hr IV .Q10H [facility] Last Admin: 03/03/17 00:41 Dose: 100 mls/hr Ceftriaxone Sodium (Rocephin Iv 1 Gm Duplex) 50 mls @ 100 mls/hr IVPB Q12H [facility] Last Admin: 03/03/17 09:49 Dose: 100 mls/hr Morphine Sulfate (Morphine) 2 mg IVP Q4 PRN PRN Reason: Pain, severe (8-10) Last Admin: 03/02/17 20:24 Dose: 2 mg Ondansetron HCl (Zofran Inj) 4 mg IVP Q6H PRN PRN Reason: Nausea/Vomiting Pantoprazole Sodium (Protonix Ec Tab) 40 mg PO DAILY [facility] Last Admin: 03/03/17 09:49 Dose: 40 mg Polyethylene Glycol (Miralax) 17 gm PO DAILY [facility]
[2017-03-03 20:01] LABS: INR 1.1; PROTHROMBIN TIME 11.9 SECONDS (9.7-12.2)
[2017-03-03 20:07] LABS: WNV AB IGM 0.03
[2017-03-03 20:30] LABS: IRON 64 ug/dL (37-170)
[2017-03-03 20:32] LABS: ACETAMINOPHEN < 10.0 ug/mL (10.0-30.0); SALICYLATE < 1.0 mg/dL 1
[2017-03-03 20:44] LABS: % IRON SATURATION 19 (20-55); TOTAL IRON BINDING CAPACITY 340 ug/dL (250-450)
[2017-03-03 20:54] LABS: IMMUNOGLOBULIN G 1363.7 mg/dL (700.0-1600.0)
[2017-03-03 20:55] LABS: IMMUNOGLOBULIN A 601.5 mg/dL (70.0-400.0)
[2017-03-03 21:30] LABS: IMMUNOGLOBULIN M 541.5 mg/dL (40.0-230.0)
[2017-03-03] MEDS: POLYETHYLENE GLYCOL 3350 17 GM/Dose PACKET PO SCH (21:33)
--- NOTE | 2017-03-04 07:07 | CP.PCM.PN ---
<Danita Huffman - Last Filed: 03/04/17 08:21> Subjective - Date & Time of Evaluation Date of Evaluation: 03/04/17 Time of Evaluation: 07:04 - Subjective Subjective: Gastroenterology Fellow/PGY5 Progress Note Patient denies abdominal pain. Notes poor appetite and minimal intake of heart healthy diet. Notes no bowel movement yesterday. A 12-point review of systems negative except for as above. Objective - Vital Signs/Intake and Output Vital Signs (last 24 hours): Temp Pulse Resp BP Pulse Ox 99.2 F 73 20 109/63 95 03/03/17 23:30 03/03/17 23:30 03/03/17 23:30 03/03/17 23:30 03/03/17 23:30 - Medications Medications: Current Medications Enoxaparin Sodium (Lovenox) 40 mg SC DAILY [facility] Last Admin: 03/03/17 09:57 Dose: Not Given Ceftriaxone Sodium (Rocephin Iv 1 Gm Duplex) 50 mls @ 100 mls/hr IVPB Q12H [facility] Last Admin: 03/03/17 09:49 Dose: 100 mls/hr Morphine Sulfate (Morphine) 2 mg IVP Q4 PRN PRN Reason: Pain, severe (8-10) Last Admin: 03/02/17 20:24 Dose: 2 mg Ondansetron HCl (Zofran Inj) 4 mg IVP Q6H PRN PRN Reason: Nausea/Vomiting Pantoprazole Sodium (Protonix Ec Tab) 40 mg PO DAILY [facility] Last Admin: 03/03/17 09:49 Dose: 40 mg Polyethylene Glycol (Miralax) 17 gm PO DAILY [facility] Last Admin: 03/03/17 21:33 Dose: Not Given - Labs Labs: PT 11.9 SECONDS (9.7-12.2) 03/03/17 19:43 INR 1.1 03/03/17 19:43 APTT 32 SECONDS (21-34) 03/03/17 19:43 - Constitutional Appears: Non-toxic, No Acute Distress - Head Exam Head Exam: ATRAUMATIC, NORMOCEPHALIC - Eye Exam Eye Exam: EOMI, PERRL Pupil Exam: PERRL. absent: Miosis, Mydriatic - ENT Exam ENT Exam: Mucous Membranes Moist, Normal Oropharynx - Neck Exam Neck Exam: Full ROM, Normal Inspection - Respiratory Exam Respiratory Exam: Clear to Ausculation Bilateral. absent: Rales, Rhonchi, Wheezes - Cardiovascular Exam Cardiovascular Exam: RRR, +S1, +S2. absent: Gallop, Rubs - GI/Abdominal Exam GI & Abdominal Exam: Soft, Normal Bowel Sounds. absent: Distended, Firm, Guarding, Rigid, Tenderness, Organomegaly, Rebound - Extremities Exam Extremities Exam: Normal Inspection. absent: Pedal Edema - Neurological Exam Neurological Exam: Alert, Awake - Psychiatric Exam Psychiatric exam: Normal Affect, Normal Mood - Skin Skin Exam: Dry, Intact, Normal Color, Warm Assessment and Plan - Assessment and Plan (Free Text) Assessment: 46 year old female with history of Anxiety presenting with nausea, vomiting, fever, and body aches for two weeks. Active treatment of UTI and fever with meningitis ruled out on initial CSF lumbar puncture fluid analysis. GI consultation for transaminitis. Ultrasound (03/01) showed hepatic steatosis, no gallstones, CBD 4mm, and splenomegaly. CT A/P IV with contrast (02/26) showed diverticulosis and no acute pathology. No prior EGD or colonoscopy. Plan: >DDx: infectious, drug induced, autoimmune >CT A/P w/ and w/o- no acute pathology >pending autoimmune workup >pending HepAtotal, HepBcTotal, HepBsaby, GGT >pending Ehrlichiosis, Babesiosis >negative Hepatitis panel, ASA, APAP, Monospot, Influenza, West Nile, >urine and blood cultures negative to date >ID managing- pending EBV, HSV, Lyme titer, adenovirus, CSF culture >LFTs improving >on ceftriaxone for UTI >continue bowel regimen >continue heart healthy diet, ordered Ensure supplements >will follow transaminitis workup <Arnie Jay - Last Filed: 03/04/17 09:50> Objective - Vital Signs/Intake and Output Vital Signs (last 24 hours): Temp Pulse Resp BP Pulse Ox 98.3 F 97 H 20 119/78 94 L 03/04/17 07:00 03/04/17 07:00 03/04/17 07:00 03/04/17 07:00 03/04/17 07:00 - Medications Medications: Current Medications Enoxaparin Sodium (Lovenox) 40 mg SC DAILY [facility] Last Admin: 03/04/17 09:43 Dose: Not Given Ceftriaxone Sodium (Rocephin Iv 1 Gm Duplex) 50 mls @ 100 mls/hr IVPB Q12H [facility] Last Admin: 03/04/17 09:44 Dose: 100 mls/hr Morphine Sulfate (Morphine) 2 mg IVP Q4 PRN PRN Reason: Pain, severe (8-10) Last Admin: 03/02/17 20:24 Dose: 2 mg Ondansetron HCl (Zofran Inj) 4 mg IVP Q6H PRN PRN Reason: Nausea/Vomiting Pantoprazole Sodium (Protonix Ec Tab) 40 mg PO DAILY [facility] Last Admin: 03/04/17 09:42 Dose: 40 mg Polyethylene Glycol (Miralax) 17 gm PO DAILY [facility] Last Admin: 03/04/17 09:42 Dose: Not Given - Labs Labs: 03/04/17 07:24 03/04/17 07:24 PT 11.9 SECONDS (9.7-12.2) 03/03/17 19:43 INR 1.1 03/03/17 19:43 APTT 32 SECONDS (21-34) 03/03/17 19:43 Attending/Attestation - Attestation I have personally seen and examined this patient.: Yes I have fully participated in the care of the patient.: Yes I have reviewed all pertinent clinical information, including history, physical exam and plan: Yes Notes (Text): 03/04/17 09:46 I have seen and examined patient with GI fellow. No acute events overnight, she has been afebrile for nearly 48 hours now and feels well. She denies abdominal pain, nausea, vomiting, chills. Tolerating PO diet without difficulty. Anxiety Fever - unknown origin Transaminitis - ?DILI vs infectious cause - Diet as tolerated - Continue with antibiotic therapy as per ID - LFTs trending down, continue to monitor - Awaiting autoimmune panel results - Awaiting results of EBV and tick borne infectious titers which may also contribute to transaminitis in the proper clinical setting - From GI standpoint, since patient has been afebrile for almost 48 hours and cultures negative to date, LFTs trending down, can likely discharge patient home and arrange for subsequent outpatient follow up
[2017-03-04 07:38] LABS: BASO % 0.4 % (0.0-2.0); EOS % 0.1 % (0.0-4.0); LYMPH # 5.6 K/uL (1.0-4.3); LYMPH % 66.2 % (20.0-40.0); MEAN CELL VOLUME 89.6 fL (81.0-99.0); MEAN CORPUSCULAR HEMOGLOBIN 30.1 pg (27.0-31.0); MEAN CORPUSCULAR HGB CONC 33.6 g/dL (33.0-37.0); MEAN PLATELET VOLUME 8.2 fL (7.2-11.7); MONO # 0.5 K/uL (0.0-0.8); MONO % 6.3 % (0.0-10.0); NEUT # 2.3 K/uL (1.8-7.0); NRBC % 0.1 % (0.0-2.0); PLATELET COUNT 193 K/uL (130-400); RBC 3.98 Mil/uL (3.80-5.20); WHITE BLOOD COUNT 8.4 K/uL (4.8-10.8)
[2017-03-04 07:44] LABS: ALB/GLOB RATIO 0.8 (1.0-2.1); AST/SGOT 132 U/L (14-36); GFR AFRICAN-AMERICAN > 60; GFR NON-AFRICAN AMERICAN > 60
[2017-03-04 07:45] LABS: ALT/SGPT 264 U/L (9-52); BLOOD UREA NITROGEN 6 mg/dL (7-17); CALCIUM 7.9 mg/dl (8.6-10.4)
[2017-03-04 09:14] LABS: BARBITURATES, UR NEGATIVE (NEGATIVE)
[2017-03-04 09:15] LABS: BENZODIAZEPINES, UR NEGATIVE (NEGATIVE)
[2017-03-04 09:18] LABS: OPIATES, UR NEGATIVE (NEGATIVE)
[2017-03-04 09:19] LABS: PHENCYCLIDINE, UR NEGATIVE (NEGATIVE)
[2017-03-04 09:20] LABS: BANDS 6 % (0-2); LYMPHOCYTE 44 % (20-40); MONOCYTE 6 % (0-10); NEUTROPHIL 25 % (50-75); REACTIVE LYMPHOCYTES 19 % (0-0); TOTAL CELLS COUNTED 100
[2017-03-04 09:21] LABS: PLATELET ESTIMATE NORMAL (NORMAL)
[2017-03-04] MEDS: Pantoprazole 40 mg EC Tab PO SCH (09:42)
[2017-03-04] MEDS: POLYETHYLENE GLYCOL 3350 17 GM/Dose PACKET PO SCH (09:42)
[2017-03-04] MEDS: Enoxaparin 40 mg Syringe SC SCH (09:43)
[2017-03-04] MEDS: cefTRIAXone IV 1 gm in Dextros 50 ML IVPB SCH ×2 (09:44→22:16)
--- NOTE | 2017-03-04 11:34 | CP.PCM.PN ---
Subjective - Date & Time of Evaluation Date of Evaluation: 03/04/17 Time of Evaluation: 09:15 - Subjective Subjective: Medicine Progress Note- Dr Angelika Romero's service Patient seen and examined. Patient states that she feels well today and denies body aches and headaches. However, patient admits to 6 episodes of watery diarrhea since last night. Last bowel movement was around 0800 this morning and non-bloody. Patient is tolerating her meals and ate breakfast but states that she has decreased appetite for the past 2 weeks. Denies fevers, chills, nausea, vomiting, chest pain, abdominal pain, urinary symptoms, headache and focal weakness. Objective - Vital Signs/Intake and Output Vital Signs (last 24 hours): Temp Pulse Resp BP Pulse Ox 98.3 F 97 H 20 119/78 94 L 03/04/17 07:00 03/04/17 07:00 03/04/17 07:00 03/04/17 07:00 03/04/17 07:00 - Medications Medications: Current Medications Enoxaparin Sodium (Lovenox) 40 mg SC DAILY [facility] Last Admin: 03/04/17 09:43 Dose: Not Given Ceftriaxone Sodium (Rocephin Iv 1 Gm Duplex) 50 mls @ 100 mls/hr IVPB Q12H [facility] Last Admin: 03/04/17 09:44 Dose: 100 mls/hr Morphine Sulfate (Morphine) 2 mg IVP Q4 PRN PRN Reason: Pain, severe (8-10) Last Admin: 03/02/17 20:24 Dose: 2 mg Ondansetron HCl (Zofran Inj) 4 mg IVP Q6H PRN PRN Reason: Nausea/Vomiting Pantoprazole Sodium (Protonix Ec Tab) 40 mg PO DAILY [facility] Last Admin: 03/04/17 09:42 Dose: 40 mg - Labs Labs: 03/04/17 07:24 03/04/17 07:24 PT 11.9 SECONDS (9.7-12.2) 03/03/17 19:43 INR 1.1 03/03/17 19:43 APTT 32 SECONDS (21-34) 03/03/17 19:43 - Constitutional Appears: Non-toxic, No Acute Distress - Head Exam Head Exam: ATRAUMATIC, NORMOCEPHALIC - Eye Exam Eye Exam: EOMI, Normal appearance - ENT Exam ENT Exam: Mucous Membranes Moist, Normal Exam - Neck Exam Neck Exam: Normal Inspection - Respiratory Exam Respiratory Exam: Clear to Ausculation Bilateral, NORMAL BREATHING PATTERN. absent: Rhonchi, Wheezes, Respiratory Distress - Cardiovascular Exam Cardiovascular Exam: REGULAR RHYTHM, +S1, +S2 - GI/Abdominal Exam GI & Abdominal Exam: Soft, Normal Bowel Sounds. absent: Firm, Guarding, Rigid, Tenderness - Extremities Exam Extremities Exam: Full ROM, Normal Inspection. absent: Joint Swelling, Pedal Edema - Back Exam Back Exam: NORMAL INSPECTION - Neurological Exam Neurological Exam: Alert, Awake, CN II-XII Intact, Normal Gait, Oriented x3 - Psychiatric Exam Psychiatric exam: Normal Affect, Normal Mood - Skin Skin Exam: Dry, Intact, Normal Color, Warm Assessment and Plan - Assessment and Plan (Free Text) Assessment: 1) Body aches with fever of unknown origin - Afebrile since 03/02, WBC 8.4 with 6 bands today - Meningitis ruled out on initial CSF lumbar puncture fluid analysis. Consulted Dr Long and anesthesiologist for lumbar puncture. Patient neurologically intact. - Consulted Dr Ayala, help appreciated. ID managing: pending EBV, HSV, Lyme titer, adenovirus, CSF culture - urine and blood cultures negative 2) UTI - Ceftriaxone 1gm IV q12h - 02/28 urine culture negative - f/u repeat UA 3) Diarrhea - f/u stool culture, stool leukocytes and electrolytes - f/u C diff - Encourage increased PO intake 4) Transaminitis - AST 132, ALT 264, alk phos 245, GGT 381 - CT abdomen/pelvis showed no acute findings - GI consulted Dr Jay- help appreciated. Per GI, patient may follow up as outpatient for remainder of lab results as her LFTs are downtrending. - pending autoimmune workup, pending HepAtotal, HepBcTotal, HepBsaby, GGT, Ehrlichiosis, Babesiosis - negative Hepatitis panel, ASA, APAP, Monospot, Influenza, West Nile 3) HLD - TG 173, cholesterol 127, HDL 30, LDL 61 - Counseled on heart healthy diet, start OTC omega-3 daily 4) Prophylactic measures - Protonix 40mg PO daily - SCDs - Lovenox 40mg SC daily All management per Dr Angelika Romero
[2017-03-04 13:27] LABS: SQUAMOUS EPITHIAL 6 /hpf (0-5); URINE BACTERIA RARE (<OCC); URINE BILIRUBIN NEGATIVE (NEGATIVE); URINE BLOOD 2+ (NEGATIVE); URINE CLARITY Clear (Clear); URINE COLOR Yellow (YELLOW); URINE GLUCOSE (UA) NORMAL (Normal); URINE LEUKOCYTE ESTERASE NEG Leu/uL (Negative); URINE NITRATE NEGATIVE (NEGATIVE); URINE PROTEIN NEGATIVE (NEGATIVE); URINE UROBILINOGEN NORMAL mg/dL (0.2-1.0)
[2017-03-04 14:02] LABS: 23 KD (IGG) BAND Nonreactive
--- NOTE | 2017-03-04 14:50 | CP.PCM.PN ---
Subjective - Date & Time of Evaluation Date of Evaluation: 03/04/17 Time of Evaluation: 09:00 - Subjective Subjective: clinically same Objective - Vital Signs/Intake and Output Vital Signs (last 24 hours): Temp Pulse Resp BP Pulse Ox 98.3 F 97 H 20 119/78 94 L 03/04/17 07:00 03/04/17 07:00 03/04/17 07:00 03/04/17 07:00 03/04/17 07:00 - Medications Medications: Current Medications Enoxaparin Sodium (Lovenox) 40 mg SC DAILY [facility] Last Admin: 03/04/17 09:43 Dose: Not Given Ceftriaxone Sodium (Rocephin Iv 1 Gm Duplex) 50 mls @ 100 mls/hr IVPB Q12H [facility] Last Admin: 03/04/17 09:44 Dose: 100 mls/hr Ondansetron HCl (Zofran Inj) 4 mg IVP Q6H PRN PRN Reason: Nausea/Vomiting Pantoprazole Sodium (Protonix Ec Tab) 40 mg PO DAILY [facility] Last Admin: 03/04/17 09:42 Dose: 40 mg - Labs Labs: 03/04/17 07:24 03/04/17 07:24 PT 11.9 SECONDS (9.7-12.2) 03/03/17 19:43 INR 1.1 03/03/17 19:43 APTT 32 SECONDS (21-34) 03/03/17 19:43 - Constitutional Appears: Well - Head Exam Head Exam: ATRAUMATIC, NORMAL INSPECTION, NORMOCEPHALIC - Eye Exam Eye Exam: EOMI, Normal appearance, PERRL Pupil Exam: NORMAL ACCOMODATION, PERRL - ENT Exam ENT Exam: Mucous Membranes Moist, Normal Exam - Neck Exam Neck Exam: Full ROM, Normal Inspection. absent: Lymphadenopathy - Respiratory Exam Respiratory Exam: Decreased Breath Sounds - Cardiovascular Exam Cardiovascular Exam: REGULAR RHYTHM, +S1, +S2 - GI/Abdominal Exam GI & Abdominal Exam: Soft - Rectal Exam Rectal Exam: Deferred
[2017-03-04] MEDS ORDERED: Miconazole 2% Vaginal Cream(45 gm) VG SCH (16:00)
--- NOTE | 2017-03-04 18:21 | CP.PCM.PN ---
Subjective - Date & Time of Evaluation Date of Evaluation: 03/04/17 Time of Evaluation: 08:00 - Subjective Subjective: rx in progress await babesia panel and rickettsia panel Dr avelar on consult - to re-eval cont iv antibiotics Objective - Vital Signs/Intake and Output Vital Signs (last 24 hours): Temp Pulse Resp BP Pulse Ox 98.3 F 97 H 20 119/78 94 L 03/04/17 07:00 03/04/17 07:00 03/04/17 07:00 03/04/17 07:00 03/04/17 07:00 Intake and Output: 03/04/17 03/04/17 06:59 18:59 Intake Total 1720 Balance 1720 - Medications Medications: Current Medications Enoxaparin Sodium (Lovenox) 40 mg SC DAILY [facility] Last Admin: 03/04/17 09:43 Dose: Not Given Ceftriaxone Sodium (Rocephin Iv 1 Gm Duplex) 50 mls @ 100 mls/hr IVPB Q12H [facility] Last Admin: 03/04/17 09:44 Dose: 100 mls/hr Miconazole Nitrate (Monistat 7 Vaginal Cream) 1 ea VG DAILY [facility] Ondansetron HCl (Zofran Inj) 4 mg IVP Q6H PRN PRN Reason: Nausea/Vomiting Pantoprazole Sodium (Protonix Ec Tab) 40 mg PO DAILY [facility] Last Admin: 03/04/17 09:42 Dose: 40 mg - Labs Labs: 03/04/17 07:24 03/04/17 07:24 PT 11.9 SECONDS (9.7-12.2) 03/03/17 19:43 INR 1.1 03/03/17 19:43 APTT 32 SECONDS (21-34) 03/03/17 19:43 - Constitutional Appears: Non-toxic, Chronically Ill - Head Exam Head Exam: NORMOCEPHALIC - Eye Exam Eye Exam: PERRL. absent: Scleral icterus - ENT Exam ENT Exam: Mucous Membranes Dry, Normal External Ear Exam - Neck Exam Neck Exam: absent: Lymphadenopathy - Respiratory Exam Respiratory Exam: Decreased Breath Sounds - Cardiovascular Exam Cardiovascular Exam: REGULAR RHYTHM - GI/Abdominal Exam GI & Abdominal Exam: Distended Assessment and Plan (1) Fever Status: Acute (2) Fever Status: Acute (3) Body aches Status: Acute (4) Headache Status: Acute (5) UTI (urinary tract infection) Status: Acute
[2017-03-04] MEDS: Miconazole 2% Vaginal Cream(45 gm) VG SCH (19:06)
[2017-03-04 23:35] VITALS: RESP 20
[2017-03-05 08:00] VITALS: BP 96/65; PULSE 103; TEMP 98.2; O2SAT 98
[2017-03-05 08:31] LABS: BASO # 0.1 K/uL (0.0-0.2); BASO % 0.7 % (0.0-2.0); EOS % 0.1 % (0.0-4.0); HEMOGLOBIN 12.2 g/dL (11.0-16.0); LYMPH % 62.2 % (20.0-40.0); MEAN CELL VOLUME 89.2 fL (81.0-99.0); MEAN CORPUSCULAR HEMOGLOBIN 29.6 pg (27.0-31.0); MEAN CORPUSCULAR HGB CONC 33.2 g/dL (33.0-37.0); MEAN PLATELET VOLUME 8.3 fL (7.2-11.7); MONO # 0.6 K/uL (0.0-0.8); MONO % 7.2 % (0.0-10.0); NEUT # 2.4 K/uL (1.8-7.0); NEUT % 29.8 % (50.0-75.0); NRBC % 0.1 % (0.0-2.0); RBC 4.12 Mil/uL (3.80-5.20); RED CELL DISTRIBUTION WIDTH 14.5 % (11.5-14.5)
[2017-03-05 08:51] LABS: ALBUMIN 3.2 g/dL (3.5-5.0)
[2017-03-05 08:54] LABS: AST/SGOT 121 U/L (14-36); GFR AFRICAN-AMERICAN > 60; GFR NON-AFRICAN AMERICAN > 60
[2017-03-05 08:55] LABS: ALB/GLOB RATIO 0.9 (1.0-2.1); ALT/SGPT 237 U/L (9-52); BLOOD UREA NITROGEN 6 mg/dL (7-17); CALCIUM 8.3 mg/dl (8.6-10.4)
--- NOTE | 2017-03-05 09:37 | CP.PCM.PN ---
Subjective - Date & Time of Evaluation Date of Evaluation: 03/05/17 Time of Evaluation: 08:40 - Subjective Subjective: clinically same Objective - Vital Signs/Intake and Output Vital Signs (last 24 hours): Temp Pulse Resp BP Pulse Ox 98.2 F 103 H 20 96/65 L 98 03/05/17 07:59 03/05/17 07:59 03/05/17 07:59 03/05/17 07:59 03/05/17 07:59 Intake and Output: 03/05/17 03/05/17 06:59 18:59 Intake Total 230 Balance 230 - Medications Medications: Current Medications Enoxaparin Sodium (Lovenox) 40 mg SC DAILY [facility] Last Admin: 03/04/17 09:43 Dose: Not Given Ceftriaxone Sodium (Rocephin Iv 1 Gm Duplex) 50 mls @ 100 mls/hr IVPB Q12H [facility] Last Admin: 03/04/17 22:16 Dose: 100 mls/hr Miconazole Nitrate (Monistat 7 Vaginal Cream) 1 ea VG DAILY [facility] Last Admin: 03/04/17 19:06 Dose: 1 applic Ondansetron HCl (Zofran Inj) 4 mg IVP Q6H PRN PRN Reason: Nausea/Vomiting Pantoprazole Sodium (Protonix Ec Tab) 40 mg PO DAILY [facility] Last Admin: 03/04/17 09:42 Dose: 40 mg - Labs Labs: 03/05/17 08:23 03/05/17 08:23 PT 11.9 SECONDS (9.7-12.2) 03/03/17 19:43 INR 1.1 03/03/17 19:43 APTT 32 SECONDS (21-34) 03/03/17 19:43 - Constitutional Appears: Well - Head Exam Head Exam: ATRAUMATIC, NORMAL INSPECTION, NORMOCEPHALIC - Eye Exam Eye Exam: EOMI, Normal appearance, PERRL Pupil Exam: NORMAL ACCOMODATION, PERRL - ENT Exam ENT Exam: Mucous Membranes Moist, Normal Exam - Neck Exam Neck Exam: Full ROM, Normal Inspection. absent: Lymphadenopathy - Respiratory Exam Respiratory Exam: Decreased Breath Sounds - Cardiovascular Exam Cardiovascular Exam: REGULAR RHYTHM, +S1, +S2 - GI/Abdominal Exam GI & Abdominal Exam: Soft, Diminished Bowel Sounds - Rectal Exam Rectal Exam: Deferred
[2017-03-05] MEDS: cefTRIAXone IV 1 gm in Dextros 50 ML IVPB SCH (09:52)
[2017-03-05] MEDS: Pantoprazole 40 mg EC Tab PO SCH (09:52)
[2017-03-05] MEDS: Enoxaparin 40 mg Syringe SC SCH (09:53)
[2017-03-05] MEDS: Miconazole 2% Vaginal Cream(45 gm) VG SCH (09:53)
[2017-03-05 09:59] LABS: INTRACELLULAR PARASITE NEGATIVE (NEGATIVE)
--- NOTE | 2017-03-05 10:22 | CP.PCM.PN ---
<Rosenda Angel - Last Filed: 03/05/17 10:45> Subjective - Date & Time of Evaluation Date of Evaluation: 03/05/17 Time of Evaluation: 06:30 - Subjective Subjective: GI Fellow PGY4 Progress Note Pt seen and examined at beside, doing well this morning with no further reported fever. Pt tolerating her diet with no abdominal pain and regular bowel movements. ROS: A 12pt ROS was obtained and was negative except as mentioned above. Objective - Vital Signs/Intake and Output Vital Signs (last 24 hours): Temp Pulse Resp BP Pulse Ox 98.2 F 103 H 20 96/65 L 98 03/05/17 07:59 03/05/17 07:59 03/05/17 07:59 03/05/17 07:59 03/05/17 07:59 Intake and Output: 03/05/17 03/05/17 06:59 18:59 Intake Total 230 Balance 230 - Medications Medications: Current Medications Enoxaparin Sodium (Lovenox) 40 mg SC DAILY [facility] Last Admin: 03/05/17 09:53 Dose: Not Given Ceftriaxone Sodium (Rocephin Iv 1 Gm Duplex) 50 mls @ 100 mls/hr IVPB Q12H [facility] Last Admin: 03/05/17 09:52 Dose: 100 mls/hr Miconazole Nitrate (Monistat 7 Vaginal Cream) 1 ea VG DAILY [facility] Last Admin: 03/05/17 09:53 Dose: Not Given Ondansetron HCl (Zofran Inj) 4 mg IVP Q6H PRN PRN Reason: Nausea/Vomiting Pantoprazole Sodium (Protonix Ec Tab) 40 mg PO DAILY [facility] Last Admin: 03/05/17 09:52 Dose: 40 mg - Labs Labs: 03/05/17 08:23 03/05/17 08:23 PT 11.9 SECONDS (9.7-12.2) 03/03/17 19:43 INR 1.1 03/03/17 19:43 APTT 32 SECONDS (21-34) 03/03/17 19:43 - Constitutional Appears: Well, Non-toxic, No Acute Distress - Head Exam Head Exam: ATRAUMATIC, NORMAL INSPECTION, NORMOCEPHALIC - Eye Exam Eye Exam: EOMI, Normal appearance, PERRL Pupil Exam: PERRL - ENT Exam ENT Exam: Mucous Membranes Moist, Normal Exam - Neck Exam Neck Exam: Full ROM, Normal Inspection. absent: Meningismus - Respiratory Exam Respiratory Exam: Clear to Ausculation Bilateral, NORMAL BREATHING PATTERN - Cardiovascular Exam Cardiovascular Exam: RRR, +S1, +S2 - GI/Abdominal Exam GI & Abdominal Exam: Soft, Normal Bowel Sounds. absent: Tenderness, Organomegaly - Extremities Exam Extremities Exam: Full ROM, Normal Inspection - Back Exam Back Exam: NORMAL INSPECTION - Neurological Exam Neurological Exam: Alert, Awake, Oriented x3 - Psychiatric Exam Psychiatric exam: Normal Affect, Normal Mood - Skin Skin Exam: Dry, Intact, Normal Color, Warm Assessment and Plan - Assessment and Plan (Free Text) Assessment: This is a 46yF with history of Anxiety presenting with nausea, vomiting, fever, and body aches for two weeks. Active treatment of UTI and fever with meningitis ruled out on initial CSF lumbar puncture fluid analysis. GI consultation for transaminitis. Ultrasound (03/01) showed hepatic steatosis, no gallstones, CBD 4mm, and splenomegaly. CT A/P IV with contrast (02/26) showed diverticulosis and no acute pathology. No prior EGD or colonoscopy. 1. Lyme Disease 2. Transaminitis 3. Fever Plan: - Transaminitis likely secondary to Lyme Disease - Continue with antibiotic therapy as per ID - LFTs trending down, continue to monitor - Awaiting autoimmune panel results, hepatitis panel negative - From GI standpoint, can followup outpt and make sure LFTs are trending down. <Jordan Luke - Last Filed: 03/09/17 12:31> Objective - Vital Signs/Intake and Output Vital Signs (last 24 hours): Temp Pulse Resp BP Pulse Ox 98.2 F 103 H 20 96/65 L 98 03/05/17 07:59 03/05/17 07:59 03/05/17 07:59 03/05/17 07:59 03/05/17 07:59 - Labs Labs: 03/05/17 08:23 03/05/17 08:23 PT 11.9 SECONDS (9.7-12.2) 03/03/17 19:43 INR 1.1 03/03/17 19:43 APTT 32 SECONDS (21-34) 03/03/17 19:43 Attending/Attestation - Attestation I have personally seen and examined this patient.: Yes I have fully participated in the care of the patient.: Yes I have reviewed all pertinent clinical information, including history, physical exam and plan: Yes Notes (Text): 03/05/17 12:30 46 year old female with history of Anxiety presenting with elevated lfts found to have lyme disease. 1. Lyme Disease 2. Elevated LFTs Plan: - eval negative for viral hepatitis - autoimmune serologies pending - likely related to lyme disease - continue antibiotics - repeat LFTs and follow up in 2 weeks - abdominal imaging unremarkabel
[2017-03-05 11:51] LABS: HSV 1 DNA Not Detected (Not Detected); HSV 2 DNA Not Detected (Not Detected); SPECIMEN SOURCE CSF
--- NOTE | 2017-03-05 15:00 | CP.PCM.PN ---
Subjective - Date & Time of Evaluation Date of Evaluation: 03/05/17 Time of Evaluation: 14:56 - Subjective Subjective: PGY2 progress note for Dr. Romero Pt is seen and examined at bedside. No acute events overnight. Patient denies having any DONNELLY overnight. patient denies having any CP, SOB, abd pain, dysuria, N /V/D/C. Patient is tolerating diet and ambulating without difficulty. 12 point ROS are negative except for the above mentioned. Objective - Vital Signs/Intake and Output Vital Signs (last 24 hours): Temp Pulse Resp BP Pulse Ox 98.2 F 103 H 20 96/65 L 98 03/05/17 07:59 03/05/17 07:59 03/05/17 07:59 03/05/17 07:59 03/05/17 07:59 Intake and Output: 03/05/17 03/05/17 06:59 18:59 Intake Total 230 Balance 230 - Medications Medications: Current Medications Enoxaparin Sodium (Lovenox) 40 mg SC DAILY [facility] Last Admin: 03/05/17 09:53 Dose: Not Given Ceftriaxone Sodium (Rocephin Iv 1 Gm Duplex) 50 mls @ 100 mls/hr IVPB Q12H [facility] Last Admin: 03/05/17 09:52 Dose: 100 mls/hr Miconazole Nitrate (Monistat 7 Vaginal Cream) 1 ea VG DAILY [facility] Last Admin: 03/05/17 09:53 Dose: Not Given Ondansetron HCl (Zofran Inj) 4 mg IVP Q6H PRN PRN Reason: Nausea/Vomiting Pantoprazole Sodium (Protonix Ec Tab) 40 mg PO DAILY [facility] Last Admin: 03/05/17 09:52 Dose: 40 mg - Labs Labs: 03/05/17 08:23 03/05/17 08:23 PT 11.9 SECONDS (9.7-12.2) 03/03/17 19:43 INR 1.1 03/03/17 19:43 APTT 32 SECONDS (21-34) 03/03/17 19:43 - Constitutional Appears: Non-toxic, No Acute Distress - Head Exam Head Exam: ATRAUMATIC - ENT Exam ENT Exam: Mucous Membranes Moist - Respiratory Exam Respiratory Exam: Clear to Ausculation Bilateral. absent: Rales, Rhonchi, Wheezes - Cardiovascular Exam Cardiovascular Exam: REGULAR RHYTHM, +S1, +S2. absent: Gallop, Rubs, Murmur - GI/Abdominal Exam GI & Abdominal Exam: Soft, Normal Bowel Sounds. absent: Distended, Firm, Guarding, Rigid, Tenderness - Neurological Exam Neurological Exam: Alert, Awake, Oriented x3 - Psychiatric Exam Psychiatric exam: Normal Affect, Normal Mood - Skin Skin Exam: Dry, Intact, Normal Color, Warm Assessment and Plan - Assessment and Plan (Free Text) Assessment: 1) Body aches with fever of unknown origin - Resolved - Afebrile since 03/02, WBC 8.4 with 6 bands today - Meningitis ruled out on initial CSF lumbar puncture fluid analysis. Consulted Dr Long and anesthesiologist for lumbar puncture. Patient neurologically intact. - Consulted Dr Ayala, help appreciated. ID managing: pending EBV, HSV, Lyme titer, adenovirus, CSF culture - urine and blood cultures negative 2) UTI -Roecephin - ID consulted 3) Diarrhea - c diff negative - Encourage increased PO intake 4) Transaminitis - Trending down - GI recommend outpatient follow up - CT abdomen/pelvis showed no acute findings - HepAtotal, HepBcTotal, HepBsaby, GGT: negative - negative Hepatitis panel, ASA, APAP, Monospot, Influenza, West Nile -Ehrlichiosis, Babesiosis: pending 3) HLD - TG 173, cholesterol 127, HDL 30, LDL 61 - Counseled on heart healthy diet, start OTC omega-3 daily 4) Prophylactic measures - Protonix 40mg PO daily - SCDs - Lovenox 40mg SC daily All management per Dr Angelika Romero Patient is stable for discharge home per Dr. Romero. Patient is to follow up with PMD after discharge. Patient is discharged with the following medication: Doxycycline 100 mg po BID for 30 days Patient is to continue taking her home medications as prescribed. Please return to ED if symptoms worsen.
--- NOTE | 2017-03-05 15:08 | CP.PCM.PN ---
Subjective - Date & Time of Evaluation Date of Evaluation: 03/05/17 Time of Evaluation: 10:00 - Subjective Subjective: IMPROVING ON IV RX TO CONT RX Objective - Vital Signs/Intake and Output Vital Signs (last 24 hours): Temp Pulse Resp BP Pulse Ox 98.2 F 103 H 20 96/65 L 98 03/05/17 07:59 03/05/17 07:59 03/05/17 07:59 03/05/17 07:59 03/05/17 07:59 Intake and Output: 03/05/17 03/05/17 06:59 18:59 Intake Total 230 Balance 230 - Medications Medications: Current Medications Enoxaparin Sodium (Lovenox) 40 mg SC DAILY [facility] Last Admin: 03/05/17 09:53 Dose: Not Given Ceftriaxone Sodium (Rocephin Iv 1 Gm Duplex) 50 mls @ 100 mls/hr IVPB Q12H [facility] Last Admin: 03/05/17 09:52 Dose: 100 mls/hr Miconazole Nitrate (Monistat 7 Vaginal Cream) 1 ea VG DAILY [facility] Last Admin: 03/05/17 09:53 Dose: Not Given Ondansetron HCl (Zofran Inj) 4 mg IVP Q6H PRN PRN Reason: Nausea/Vomiting Pantoprazole Sodium (Protonix Ec Tab) 40 mg PO DAILY [facility] Last Admin: 03/05/17 09:52 Dose: 40 mg - Labs Labs: 03/05/17 08:23 03/05/17 08:23 PT 11.9 SECONDS (9.7-12.2) 03/03/17 19:43 INR 1.1 03/03/17 19:43 APTT 32 SECONDS (21-34) 03/03/17 19:43 - Constitutional Appears: Non-toxic - Head Exam Head Exam: NORMOCEPHALIC - Eye Exam Eye Exam: PERRL. absent: Scleral icterus - ENT Exam ENT Exam: Mucous Membranes Dry, Normal External Ear Exam - Neck Exam Neck Exam: absent: Lymphadenopathy - Respiratory Exam Respiratory Exam: Decreased Breath Sounds, Clear to Ausculation Bilateral - Cardiovascular Exam Cardiovascular Exam: REGULAR RHYTHM - GI/Abdominal Exam GI & Abdominal Exam: Distended Assessment and Plan (1) Fever Status: Acute (2) Fever Status: Acute (3) Body aches Status: Acute (4) Headache Status: Acute (5) UTI (urinary tract infection) Status: Acute
[2017-03-05 17:57] LABS: SOURCE PLASMA
[2017-03-06 20:38] LABS: SOURCE CSF
[2017-03-11 06:30] LABS: STOOL SODIUM 35.3 mEq/L
== END 2017-03-05 15:40 | disposition home or self-care (01) | DRG 864 ==
LOC: C.ER 22:10 → C.5T 23:27 → OBSVTOIN 03-02 16:44
PROVIDERS: ADMIT Internal Medicine Nephrology; ATTEND Internal Medicine Nephrology
PROC: 009U3ZX Drainage of Spinal Canal, Percutaneous Approach, Diagnostic (ICD-10-PCS; principal; 2017-03-02)
DX: R50.9 Fever, unspecified (principal); N39.0 Urinary tract infection, site not specified; E78.5 Hyperlipidemia, unspecified; R11.2 Nausea with vomiting, unspecified; F41.9 Anxiety disorder, unspecified; K57.90 Diverticulosis of intestine, part unspecified, without perforation or abscess without bleeding; R51 Headache; R19.7 Diarrhea, unspecified